=== PATIENT | female | born 1980 | race Caucasian/White ===

== ENCOUNTER → 2018-01-30 16:52 | Outpatient (CLI) | payer OTHER, SELFPAY ==
[2018-02-05 10:29] LABS: HPV APTIMA, High Risk Negative (Negative)
== END ==
PROVIDERS: Referring Provider Obstetrics & Gynecology; Visit Provider Obstetrics & Gynecology
DX: Z12.4 Encounter for screening for malignant neoplasm of cervix (principal)
CPT/HCPCS: 87624; 88175; G0145

== ENCOUNTER → 2019-05-08 08:25 | Outpatient (CLI) | payer OTHER, SELFPAY ==
[2018-12-25 16:43] VITALS: BMI 19.8
--- NOTE | 2019-05-08 08:25 | RAD_ITS ---
STUDY: X-RAY - PELVIS AND RIGHT HIP REASON FOR EXAM: Female, 38 years old. MUSCULAR PAIN SUPERIOR TO RIGHT ILIAC WING X6 MONTHS, NKI TECHNIQUE: 3 views of the pelvis and hip. COMPARISON: None. FINDINGS: There is a non-specific bowel gas pattern. Normal visualized soft tissue structures. Normal bilateral iliac wings, sacroiliac joints and visualized sacrum. Normal bilateral superior and inferior pubic rami. Normal pubic symphysis. Normal bilateral ischial tuberosities. Normal visualized femoral head. Normal acetabulum. Normal hip joint. RAD/HIP, UNI W/ Pelvis 2-3 Views IMPRESSION: Normal x-ray examination of the pelvis and hip. Electronically Signed: Alex Caraballo, at 14:25 EST , Service support ,
== END ==
PROVIDERS: Referring Provider Physician Assistant; Visit Provider Physician Assistant
DX: M25.551 Pain in right hip (principal)
CPT/HCPCS: 73502

== ENCOUNTER 2021-04-13 14:33 | Outpatient (CLI) | payer OTHER, SELFPAY ==
[2021-04-18 17:11] LABS: HPV APTIMA, High Risk Negative (Negative)
== END 2021-04-13 23:59 | disposition home or self-care (01) ==
LOC: LABSPEC 14:33
PROVIDERS: Visit Provider Obstetrics & Gynecology
DX: Z12.4 Encounter for screening for malignant neoplasm of cervix (principal)
CPT/HCPCS: 87624; 88175; G0145

== ENCOUNTER → 2022-04-25 | Outpatient (CLI) | payer OTHER, SELFPAY ==
[2022-04-27 20:29] LABS: HPV APTIMA, High Risk Negative (Negative)
== END | disposition home or self-care (01) ==
PROVIDERS: Referring Provider Obstetrics & Gynecology; Visit Provider Obstetrics & Gynecology
DX: Z12.4 Encounter for screening for malignant neoplasm of cervix (principal)
CPT/HCPCS: 87624; 88175; G0145

== ENCOUNTER → 2022-06-15 | Outpatient (CLI) | payer OTHER, SELFPAY ==
--- NOTE | 2022-06-15 11:58 | BI_ITS ---
MAMMOGRAPHY - BILATERAL SCREENING REASON FOR EXAM: Female, 42 years old. Routine annual screening examination. PERTINENT HISTORY: Non-contributory. TECHNIQUE: Digital bilateral breast margareth (3D mammographic acquisition) in the CC and MLO projections. 2-D mediolateral oblique (MLO) and craniocaudad (CC) views of both breasts were obtained. CAD: Full Field Digital Mammography with Computer Added Detection was performed. COMPARISON: None. Baseline examination. FINDINGS: Breast Composition: The breasts are extremely dense, which lowers the sensitivity of mammography. There are no dominant masses or suspicious calcifications. No other significant abnormalities are identified. BI/SCRN MAMM (CAD)W/MARGARETH BILAT IMPRESSION: Negative screening mammogram. Yearly followup mammogram recommended. (A) ASSESSMENT CATEGORY: BIRADS Category 1: Negative. A letter regarding these results will be sent to the patient by the facility within 30 days. Approximately 10% of breast cancers are not detected by mammography. A normal mammogram should not delay biopsy of a clinically suspicious abnormality. [id number] Electronically Signed: Alex Caraballo MD at 13:12 EST ,
== END | disposition home or self-care (01) ==
LOC: OPBI 11:57
PROVIDERS: PCP Family Medicine; Visit Provider Obstetrics & Gynecology
DX: Z12.31 Encounter for screening mammogram for malignant neoplasm of breast (principal)
CPT/HCPCS: 77063; 77067

== ENCOUNTER → 2023-04-26 | Outpatient (CLI) | payer OTHER, SELFPAY ==
--- OUTSIDE RECORDS SUMMARY | 2023-04-26 10:49 | XMS RPT_ITS | CCD ---
Author Name Unknown Address [address] [place] [address] Organization [facility] Care Team Providers Care Manager Body Name Role Phone Blayne Box Unavailable Unavailable Unavailable Blayne Box Primary Care Provider Blayne Box Primary Care Provider Blayne Box Primary Care Provider Airam Wynne MD Primary Care Provider Blayne Box MD Primary Care Provider [phone] Blayne Box MD Unavailable BLAYNE BOX Attending Unavailable BLAYNE BOX Primary Care Unavailable ARUN AIRAM Fadumo Primary Care Unavailable HEATHER WHITTEN Attending Unavailable BLAYNE BOX Primary Care Unavailable KAREN OVALLE Referring Unavailable KAREN OVALLE Attending Unavailable BLAYNE BOX Primary Care Unavailable AIRAM WYNNE Primary Care Unavailable LETI ALVAREZ Referring Unava ilable ARUN AIRAM Fadumo Primary Care Unavailable KAREN OVALLE Referring Unavailable ARUN AIRAM Fadumo Primary Care Unavailable Blayne Box MD Primary Care Provider ROMEL CHACON Referring Unavailable BLAYNE BOX Primary Care UnavailROMEL Sethi Admitting Unavailable BLAYNE BOX Primary Care Unavailab ROMEL De Paz Attending Unavailable SAMANTA PARKER Attending Unavailab le BLAYNE BOX Primary Care Unavailab le Allergies Allergy Classification Reported Allergen(s) Allergy Type Date of Onset Reaction(s) Facility (4 sources) Penicillins; Translations: [Penicillins] Allergy to drug (finding) 2 [facility] 3 Repository (2 sources) Sulfonamides (Antibiotic); Translations: [Sulfa Drugs] Allergy to drug (finding) [facility] Work Phone: (2 sources) Penicillins Drug Allergy 2 [facility] Work Phone: (20 sources) Sulfonamides (Antibiotic); Translations: [SULFA (SULFONAMIDE ANTIBIOTICS)] Drug Allergy 5 Rash, Unknown, [facility] (14 sources) Penicillins Drug Allergy 2 Hives, Unknown [facility] Work Phone: (3 sources) Penicillin G; Translations: [PENICILLIN G] Drug Allergy 4 [facility] Medications Current Medications Medication Drug Class(es) Dates Sig (Normalized) Sig (Original) 24 hr buPROPion hydrochloride 150 mg extended release oral tablet (3 sources) Aminoketone Start: 07-06-2021 End: 01-02-2023 take 1 tablet by mouth once daily buPROPion XL (Wellbutrin XL) 150 mg 24 hr tablet Take 1 tablet (150 mg) by mouth once daily. 0 07/06/2021 01/02/2023 Discontinued (Therapy completed) clonazePAM 0.5 mg oral tablet (18 sources) Benzodiazepine Start: 12-31-2022 End: 03-31-2023 take 1 tablet by mouth twice daily as needed for anxiety clonazePAM (KLONOPIN) 0.5 mg tablet Indications: Optic neuritis Take 1 tablet by mouth twice daily as needed for anxiety for up to 90 days. 60 tablet 2 12/31/2022 03/31/2023 Active Completed/Discontinued Medications Medication Drug Class(es) Dates Sig (Normalized) Sig (Original) busPIRone hydrochloride 5 mg oral tablet (4 sources) Start: 07-30-2022 take 1 tablet by mouth every eight hours as needed busPIRone (BUSPAR) 5 mg tablet Take 1 tablet by mouth three times daily as needed. 90 tablet 11 07/30/2022 Active Problems Active Problems Problem Classification Problem Date Documented Date Episodic/Chronic Anxiety disorders (8 sources) Anxiety; Translations: [Anxiety state, unspecified] Onset: 07-30-2022 Chronic Fracture of upper limb (3 sources) Closed fracture of proximal phalanx of ring finger; Translations: [Nondisplaced fracture of proximal phalanx of left ring finger, initial encounter for closed fracture] Onset: 04-19-2023 04-24-2023 Episodic Headache; including migraine (3 sources) Migraine; Translations: [Migraine, unspecified, without mention of intractable migraine without mention of status migrainosus] Onset: 01-02-2023 01-02-2023 Chronic Inflammation; infection of eye (except that caused by tuberculosis or sexually transmitteddisease) (18 sources) Optic neuritis; Translations: [Unspecified optic neuritis] Onset: 08-02-2011 08-02-2011 Chronic Joint disorders and dislocations; trauma-related (1 source) Dislocation of proximal interphalangeal joint of left ring finger, initial encounter; Translations: [Closed dislocation of interphalangeal (joint), hand] 04-24-2023 Episodic Multiple sclerosis (5 sources) Multiple sclerosis; Translations: [Multiple sclerosis] Onset: 07-30-2022 Chronic Nutritional deficiencies (1 source) Vitamin D deficiency, unspecified; Translations: [Hypovitaminosis D] Onset: 07-06-2022 Chronic Other aftercare (1 source) Other chcf (current) drug therapy; Translations: [On angiotensin receptor blockers (ARB)] Onset: 03-22-2023 Episodic Other aftercare (2 sources) Encounter for follow-up examination after completed treatment for conditions other than malignant neoplasm; Translations: [Encounter for follow-up examination after completed treatment for conditions other than malignant neoplasm] Onset: 04-23-2023 Episodic Other injuries and conditions due to external causes (2 sources) Other injury of unspecified body region, initial encounter; Translations: [Other injury of unspecified body region, initial encounter] Onset: 04-23-2023 Episodic Unclassified (2 sources) Injury Onset: 04-23-2023 Past or Other Problems Problem Classification Problem Date Documented Da te Episodic/Chronic Immunizations and screening for infectious disease (8 sources) Patient encounter status; Translations: [Other specified vaccination] Onset: 07-30-2022 Episodic Other screening for suspected conditions (not mental disorders or infectious disease) (3 sources) Cancer cervix screening status; Translations: [Encounter for screening for malignant neoplasm of cervix] Onset: 07-30-2022 Episodic Results Test Name Value Interpretation Reference Range Facil ity Vital Signs Date Time Vital Sign Value Performing Clinician Facility 04-23-2023 14:23-0500 Body height 165.1 cm Romel Garzagiovany [facility] Work Phone: [facility] 04-23-2023 14:23-0500 Body mass index (BMI) [Ratio] 19.14 kg/m2 Romel Garzagiovany [facility] Work Phone: [facility] 04-23-2023 14:23-0500 Body weight 52.16 kg Romel Garzagiovany [facility] Work Phone: [facility] 01-02-2023 10:00-0400 Body height 165.1 cm Blayne Box MD Work Phone: [facility] 01-02-2023 10:00-0400 Body mass index (BMI) [Ratio] 20.1 kg/m2 Blayne Box MD Work Phone: [facility] 01-02-2023 10:00-0400 Body weight 54.8 kg Blayne Box MD Work Phone: [facility] 01-02-2023 10:00-0400 Diastolic blood pressure 66 mm[Hg] Blayne Box MD Work Phone: [facility] 01-02-2023 10:00-0400 Heart rate 86 /min Blayne Box MD Work Phone: [facility] 01-02-2023 10:00-0400 SaO2% (BldA) [Mass fraction] 99 % Blayne Box MD Work Phone: [facility] 01-02-2023 10:00-0400 Systolic blood pressure 120 mm[Hg] Blayne Box MD Work Phone: [facility] 07-30-2022 13:00-0400 Body height 163.2 cm Heather Whitten MASTER TECHNICIAN.DENTAL LABORATORY MANAGER Work Phone: [facility] 07-30-2022 13:00-0400 Body weight 53.98 kg Heather Whitten MASTER TECHNICIAN.DENTAL LABORATORY MANAGER Work Phone: [facility] 07-30-2022 13:00-0400 Diastolic blood pressure 70 mm[Hg] Heather Whitten MASTER TECHNICIAN.DENTAL LABORATORY MANAGER Work Phone: [facility] 07-30-2022 13:00-0400 Heart rate 84 /min Heather Whitten MASTER TECHNICIAN.DENTAL LABORATORY MANAGER Work Phone: [facility] 07-30-2022 13:00-0400 Respiratory rate 16 /min Heather Whitten MASTER TECHNICIAN.DENTAL LABORATORY MANAGER Work Phone: [facility] 07-30-2022 13:00-0400 SaO2% (BldA) [Mass fraction] 98 % Heather Whitten MASTER TECHNICIAN.DENTAL LABORATORY MANAGER Work Phone: [facility] 07-30-2022 13:00-0400 Systolic blood pressure 108 mm[Hg] Heather Whitten MASTER TECHNICIAN.DENTAL LABORATORY MANAGER Work Phone: [facility] 01-26-2022 10:16-0400 Body height 165.1 cm Karen Juarezinley DO Work Phone: [facility] 01-26-2022 10:16-0400 Body weight 49.9 kg Karen Juarezinley DO Work Phone: [facility] 01-26-2022 10:16-0400 Diastolic blood pressure 63 mm[Hg] Karen Yamile DO Work Phone: [facility] 01-26-2022 10:16-0400 Heart rate 87 /min Karen Yamile DO Work Phone: [facility] 01-26-2022 10:16-0400 Systolic blood pressure 117 mm[Hg] Karen Yamile DO Work Phone: [facility] 07-06-2021 09:38-0400 Body height 165.1 cm Blayne Box Work Phone: [facility] Work Phone: 07-06-2021 09:38-0400 Body mass index (BMI) [Ratio] 21.02 kg/m2 Blayne Box Work Phone: [email or web address] [facility] Work Phone: 07-06-2021 09:38-0400 Body surface area Derived from formula 1.63 m2 Blayne Box Work Phone: [email or web address] [facility] Work Phone: 07-06-2021 09:38-0400 Body weight 57.29 kg Blayne Box Work Phone: [email or web address] Work Phone: 07-06-2021 09:38-0400 Diastolic blood pressure 68 mm[Hg] Blayne Box Work Phone: [employer] [facility] Work Phone: 07-06-2021 09:38-0400 Heart rate 91 /min Blayne Box Work Phone: [employer] [email or web address] Work Phone: 07-06-2021 09:38-0400 SaO2% (BldA) [Mass fraction] 97 % Blayne Box Work Phone: [employer] [facility] Work Phone: 07-06-2021 09:38-0400 Systolic blood pressure 106 mm[Hg] Blayne Box Work Phone: [employer] Work Phone: Encounters Encounter Date Encounter Type Care Provider Facility Start: 04-23-2023 End: 04-23-2023 ambulatory BLAYNE BOX [facility] Start: 04-23-2023 End: 04-23-2023 Office outpatient visit 15 minutes Romel Chacon CNP Work Phone: [facility] Procedures Date Procedure Procedure Detail Performing Clinician Start: 07-06-2022 Mammography Heather rodriguez MASTER TECHNICIAN.DENTAL LABORATORY MANAGER Work Phone: Start: 06-15-2022 Mammography Blayne Sánchez MD Work Phone: Start: 04-25-2022 Microscopic observat ion [Identifier] in Cervix by Cyto stain Blayne Box MD Work Phone: Start: 01-22-2022 Mri brain brain stem w/o w/contrast material Shital Bailey MD Work Phone: Start: 01-22-2022 BRAIN & CERVICAL SPI NE MRI DISCRETE DATA [facility] Provider Start: 08-28-2021 Adult depression scr eening assessment Shital Bailey MD Work Phone: Start: 12-20-2020 Adult depression scr eening assessment Shital Bailey MD Work Phone: Start: 12-15-2015 Microscopic observat ion [Identifier] in Cervix by Cyto stain Romel Garzacock [facility] Work Phone: Plan of Treatment Date Care Activity Detail Author Start: 2032 Zoster Vaccines (2 o f 2) Zoster Vaccines (2 of 2) [facility] Start: 05-07-2027 HPV TESTING HPV TESTING [facility] Start: 05-07-2027 PAP TESTING PAP TESTING [facility] Start: 04-25-2025 Screening for malignant neoplasm of cervix [facility] Start: 07-31-2023 HEPATITIS B (1 of 3 - 3-dose series) HEPATITIS B (1 of 3 - 3-dose series) [facility] Immunizations Immunization Date Immunization Notes Care Provider Rock heller 07-19-2022 Human Papillomavirus 9-valent vaccine Heather Whitten APRN.DENTAL LABORATORY MANAGER Work Phone: [facility] Work Phone: 02-28-2022 HPV, unspecified formulation Blayne Box MD Work Phone: [facility] Work Phone: 02-28-2022 Human Papillomavirus 9-valent vaccine Heather Whitten APRN.DENTAL LABORATORY MANAGER Work Phone: [facility] Work Phone: 02-21-2022 influenza, injectabl e, quadrivalent, preservative free Heather Whitten APRN.DENTAL LABORATORY MANAGER Work Phone: [facility] Work Phone: 02-21-2022 zoster vaccine recombinant Heather Whitten APRN.DENTAL LABORATORY MANAGER Work Phone: [facility] Work Phone: 02-21-2022 Shingrix, PF, 50 mcg /0.5 mL vaccine Blayne Box MD Work Phone: [facility] Work Phone: 02-21-2022 influenza virus vacc ine, unspecified formulation Blayne Box MD Work Phone: [facility] Work Phone: 02-19-2022 influenza virus vacc ine, unspecified formulation Heather Whitten APRN.DENTAL LABORATORY MANAGER Work Phone: [facility] Work Phone: 02-05-2022 Pfizer COVID-19 vacc ine, bivalent, age 12 years and older (30 mcg/0.3 mL) Blayne Box MD Work Phone: [facility] Work Phone: 02-05-2022 Pfizer COVID Bival,1 2y up,,PF, 30 mcg/0.3 mL suspension vaccine Blayne Box MD Work Phone: [facility] Work Phone: 01-06-2022 Human Papillomavirus 9-valent vaccine Heather Whitten APRN.DENTAL LABORATORY MANAGER Work Phone: [facility] Work Phone: 03-09-2021 Moderna COVID-19 Vac cine 100 MCG/0.5ML Intramuscular Suspension Blayne Box Work Phone: [facility] Work Phone: 07-01-2020 Moderna COVID-19 Vac cine 100 MCG/0.5ML Intramuscular Suspension Blayne Box Work Phone: [facility] Work Phone: 06-03-2020 Moderna COVID-19 Vac cine 100 MCG/0.5ML Intramuscular Suspension Blayne Box Work Phone: [facility] Work Phone: 02-29-2020 influenza, seasonal, injectable, preservative free Blayne Box Work Phone: [facility] Work Phone: 02-18-2019 HPV, unspecified formulation Heather Whitten MASTER TECHNICIANRoxyDENTAL LABORATORY MANAGER Work Phone: [facility] Work Phone: 01-25-2009 influenza virus vacc ine, whole virus Blayne Lecel Work Phone: [facility] Work Phone: 02-14-2007 influenza virus vacc ine, whole virus Blayne Lecel Work Phone: [facility] Work Phone: Payers Date Payer Category Payer Unknown 2020 Private Health Insurance [facility] CHOICE PLUS [id number] 2020-Present [phone] [address] [place] [address] O [id number] 2020 Private Health Insurance [id number] 2020 Private Health Insurance [id number] 1982 Unknown [id number] 1982 Unknown [id number] 1982 Unknown [id number] 1982 Unknown [id number] Social History Date Type Detail Facility Start: 01-02-2023 End: 01-16-2024 Non-smoker Non-smoker [facility] Start: 01-13-2015 End: 04-19-2023 Tobacco smoking status NHIS Never smoked tobacco [facility] Start: 01-13-2015 End: 04-19-2023 Tobacco use and exposure Smokeless tobacco non-user [facility] Start: 12-21-2020 End: 07-30-2022 Alcohol intake Current drinker of alcohol (finding) [facility] Start: 1980 Sex Assigned At Not on file [facility] Start: 01-16-2022 End: 01-02-2023 Exposure to SARS-CoV-2 (event) Not sure [facility] Start: 07-23-2022 History SDOH Alcohol Frequency 1 [facility] Start: 07-23-2022 History SDOH Alcohol Std Drinks 0 [facility] Start: 07-23-2022 History SDOH Social Connections Phone 5 [facility] Start: 07-23-2022 History SDOH Social Connections Get Together 4 [facility] Start: 07-23-2022 History SDOH Social Connections Membership 2 [facility] Start: 07-23-2022 History SDOH Social Connections Meetings 98 [facility] Start: 07-23-2022 History SDOH Social Connections Living 3 [facility] Start: 01-02-2023 Alcohol intake Lifetime non-drinker (finding) [facility] Work Phone: Start: 01-02-2023 End: 04-23-2023 Tobacco use panel [facility] Do you belong to any clubs or organizations such as islam groups, unions, fraternal or athletic groups, or school groups? No [facility] How often do you att end meetings of the clubs or organizations you belong to? Patient refused [facility] Are you now , , , , never or living with a partner? [facility] How often to you hav e a drink containing alcohol? Never [facility] How hard is it for y ou to pay for the very basics like food, housing, medical care, and heating Not very hard [facility] Do you feel stress - tense, restless, nervous, or anxious, or unable to sleep at night because your mind is troubled all the time - these days [OSQ] Rather much [facility] (I/We) worried wheth er (my/our) food would run out before (I/we) got money to buy more. Never true [facility] Start: 04-19-2023 Gender identity Identifies as female gender (finding) [facility] Start: 04-19-2023 Sexual orientation Heterosexual (finding) [facility] Clinical Notes 07-06-2021 to 04-24-2023 Romel Chacon, DECATIZER - 04/24/2023 8:05 AM ESTTelephone Encounter - Katherinedavid Cloud Sharla Rico - 02/18/2023 2:59 PM ESTTelephone Encounter - Sharla Corrigan - 01/14/2023 3:32 PM EDT Note Date & Type Note Facility 04-24-2023 History of Present illness Narrative Images from the original note were not included. [facility] [address] [facility] [address] [facility] [id number] Chief Complaint Patient presents with Left Hand - Injury Aaliyah Velazquez, 42 year old female, presents to the office today with left hand pain. She got her hand caught up in a dog leash about 4 days ago which resulted in a dislocation and fracture. She was placed in a splint and instructed to follow up with orthopedics. She has pain with movement of the finger. She is also having some numbness of that finger but is able to move it. She is taking otc pain medication as needed. The patient's past medical history, surgical history, social history, family history, medications and allergies were reviewed with the patient today and are available in the chart for further review. Allergies Allergen Reactions Penicillin G Hives Sulfa (Sulfonamide Antibiotics) Hives Current Outpatient Medications: clonazePAM (KLONOPIN) 0.5 MG tablet, Take 1 (one) tablet (0.5 mg total) by mouth 2 (two) times a day as needed FOR ANXIETY ., Disp: , Rfl: ergocalciferol, vitamin D2, (VITAMIN D2 ORAL), Take by mouth ., Disp: , Rfl: FLUoxetine (PROZAC) 20 MG capsule, Take 1 (one) capsule (20 mg total) by mouth daily ., Disp: , Rfl: Kesimpta Pen 20 mg/0.4 mL Pen, as directed Subcutaneous Once a month, Disp: , Rfl: Past Medical History: Diagnosis Date MS (multiple sclerosis) (HCC) No past surgical history on file. Social History Socioeconomic History Marital status: Tobacco Use Smoking status: Never Smokeless tobacco: Never Substance and Sexual Activity Drug use: Not Currently ROS: Review of Systems Constitutional: Negative for activity change and fatigue. HENT: Negative for congestion, hearing loss and trouble swallowing. Eyes: Negative for visual disturbance. Respiratory: Negative for chest tightness and shortness of breath. Cardiovascular: Negative for chest pain and palpitations. Gastrointestinal: Negative for abdominal pain, diarrhea, nausea and vomiting. Endocrine: Negative for polydipsia, polyphagia and polyuria. Genitourinary: Negative for decreased urine volume, difficulty urinating and hematuria. Musculoskeletal: Positive for arthralgias, joint swelling and myalgias. Skin: Negative for color change, rash and wound. Allergic/Immunologic: Negative for immunocompromised state. Neurological: Negative for dizziness, weakness, light-headedness and numbness. Hematological: Does not bruise/bleed easily. Psychiatric/Behavioral: Negative for confusion and sleep disturbance. The patient is not nervous/anxious. PE: Physical Exam Constitutional: Appearance: She is well-developed. HENT: Head: Normocephalic. Eyes: Pupils: Pupils are equal, round, and reactive to light. Cardiovascular: Rate and Rhythm: Normal rate and regular rhythm. Pulmonary: Effort: Pulmonary effort is normal. Breath sounds: Normal breath sounds. Abdominal: General: Bowel sounds are normal. Palpations: Abdomen is soft. Musculoskeletal: General: Swelling, tenderness and deformity present. Left hand: Swelling, deformity, tenderness and bony tenderness present. Decreased range of motion. Decreased sensation. Normal capillary refill. Normal pulse. Hands: Cervical back: Normal range of motion and neck supple. Comments: Ecchymosis noted to left hand Skin: General: Skin is warm and dry. Neurological: Mental Status: She is alert and oriented to person, place, and time. Imaging: L Hand: Fracture of the 4th proximal phalanx with with dislocation of the PIP joint. Assessment/Plan: After examination and reviewing of the patient x-ray images, we discussed treatment options. I explained that she would have to have manipulation of the finger for correct alignment. She will follow up Saturday with Dr. Cerda for this. I will see her back after for continued treatment. documented in this encounter [facility] 03-25-2023 Note HNO ID: [id number] Author: Agnieszka Silvestre Service: ? Author Type: ? Type: Progress Notes Filed: 03/25/2023 9:12 AM Note Text: Radiology Service Progress Note DATE OF SERVICE: March 25, 2023 TIME: 9:11 AM PATIENT IDENTITY VERIFICATION COMPLETED USING TWO (2) STANDARD IDENTIFIERS: Name and Date of confirmed by patient verbally. FALL SCREENING: Has the patient had 2 falls in the last year or 1 fall with injury or currently using an Ambulatory Assistive Device (Walker, Cane, Wheelchair, Crutches, etc.)? No PATIENT GENDER DATA: Female. status: : No status: NO. PATIENT RELEVANT IMPLANT DATA REVIEWED: Not Applicable ALLERGIES: Reviewed and unchanged CONTRAST ALLERGY: NO. EXAM: MRI - CONTRAST TYPE: GROUP II PERIPHERAL IV DATA: Ambulatory: A peripheral IV was started in the Left antecubital site with a Butterfly: 23 gauge. RADIOLOGY DEPARTMENT: MR; Exam(s) Completed: Head: Multiple Sclerosis SIGNATURE: Agnieszka Middleton PATIENT NAME: Aaliyah Velazquez DATE: March 25, 2023 TIME: 9:11 AM [facility] 02-18-2023 Miscellaneous Notes Summary: APPOINTMENT LVM RE SCHEDULING PEDRO LUIS Reynoso/ACE/YAMILE. ANY PSS CAN ASSIST. documented in this encounter [facility] 02-07-2023 Note HNO ID: [id number] Author: Idania Hutchins Service: ? Author Type: ? Type: Progress Notes Filed: 02/07/2023 3:28 PM Note Text: Requested by: Received fax from pharmacy Medication Requested: Kesimpta Insurance Name: [employer] Insurance [place] phone #:[phone] Status: APPROVED [id number]. KESIMPTA INJ 20/.4ML is approved through 02/08/2024. Your patient may now fill this prescription and it will be covered. [facility] 01-14-2023 Miscellaneous Notes Summary: APPOINTMENT PATIENT TO SCHEDULE FOLLOW OV WITH ACE/YAMILE. PATIENT SAID SHE WOULD CALL BACK TO SCHEDULE. ANY PSS CAN ASSIST. documented in this encounter [facility] 01-14-2023 Miscellaneous Notes PT due for OV, will route to scheduling. Chioma Bello PA-C Source : electronic from pharmacy requesting refill. Delivery : e-script Requested Prescriptions Pending Prescriptions Disp Refills KESIMPTA PEN 20 mg/0.4 mL injection [Pharmacy Med Name: KESIMPTA 20MG 0.4ML SOLUTION PEN-INJECTOR PEN] 0.4 mL Sig: INJECT 20MG SUBCUTANEOUSLY ONCE MONTHLY DX : Patient last seen 06/08/2022 Next Appointment : none Idania Hutchins documented in this encounter [facility] 01-02-2023 History of Present illness Narrative Subjective Patient ID: Aaliyah Cote is a 42 y.o. female who presents for evaluate depression medication. HPI patient with MS was recommended for evaluation for further pharmacotherapy for anxiety. 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 Appropriately tearful at times. No melancholy. No homicidal or suicidal ideation. No problems with concentration or thought rumination. She can take situations of the worst possible outcome and be anxious. Reviewed controlled environment, perfectionism, approval. She is doing cbt workbook Prev wb not tolerated, prev lexapro flattened affect. Request mirtaz, if not amanda proz Review of Systems Objective BP 120/66 Pulse 86 Ht 1.651 m (5' 5 ) Wt 54.8 kg (120 lb 12.8 oz) SpO2 99% BMI 20.10 kg/m Physical Exam Mood and affect are normal, she is articulate and has insight. Assessment/Plan Problem List Items Addressed This Visit ICD-10-CM Anxiety - Primary F41.9 Relevant Medications mirtazapine (Remeron) 15 mg tablet Other Relevant Orders Follow Up In Primary Care - Established documented in this encounter [facility] Work Phone: 08-13-2022 Note HNO ID: [id number] Author: RT Morris(R) Service: ? Author Type: Technologist Type: Progress Notes Filed: 08/13/2022 10:31 AM Note Text: Radiology Service Progress Note DATE OF SERVICE: August 13, 2022 TIME: 10:31 AM PATIENT IDENTITY VERIFICATION COMPLETED USING TWO (2) STANDARD IDENTIFIERS: Name and Date of confirmed by patient verbally. FALL SCREENING: Has the patient had 2 falls in the last year or 1 fall with injury or currently using an Ambulatory Assistive Device (Walker, Cane, Wheelchair, Crutches, etc.)? No PATIENT GENDER DATA: Female. status: : No status: NO. PATIENT RELEVANT IMPLANT DATA REVIEWED: Yes ALLERGIES: Reviewed and unchanged CONTRAST ALLERGY: NO. EXAM: MRI - CONTRAST TYPE: GROUP II PERIPHERAL IV DATA: Ambulatory: A peripheral IV was started in the Left antecubital site with a Angio cath: 22 gauge. RADIOLOGY DEPARTMENT: MR; Exam(s) Completed: Head: Multiple Sclerosis SIGNATURE: RT Morris(R) PATIENT NAME: Aaliyah Velazquez DATE: August 13, 2022 TIME: 10:31 AM [facility] 07-30-2022 Note HNO ID: [id number] Author: Heather Whitten APRN.DENTAL LABORATORY MANAGER Service: ? Author Type: Nurse Specialist Type: Progress Notes Filed: 07/30/2022 1:52 PM Note Text: SUBJECTIVE: HIV SCREENING Never done DTAP,TDAP,TD(1 - Tdap) Never done DEPRESSION ASSESSMENT Never done HPI Aaliyah Velazquez is a 42 year old female. PMH significant for ACTIVE PROBLEM LIST Optic Neuritis Presents today to establish care with Airam Wynne MD. Previous PCP: Blayne Box MD [id number] [facility] [id number] Outside records:care everywhere She is followed at [facility] by Karen Ovalle DO for relapsing remitting multiple sclerosis. Currently taking Kesimpta. Seen in June 2022. 3-month follow-up with routine labs and repeat MRI brain. She was continued on vitamin D. 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 She notes still with anxiety, would like to try BuSpar. Clonazepam per Dr. Ovalle. Counseling: no current. Nurtec per Dr. Tatum for migraine. Trigger premenstual/ menstrual ~2 weeks per month Notes managed with aleve Q12 hours Notes intermittent ear pain for about 2 years. No current Review of Systems Constitutional: Negative. Psychiatric/Behavioral: The patient is nervous/anxious. Objective BP 108/70 Pulse 84 Resp 16 Ht 163.2 cm (5' 4.25 ) Wt 54 kg (119 lb) LMP 01/03/2015 (Exact Date) SpO2 98% BMI 20.27 kg/m? Physical Exam Vitals and nursing note reviewed. Constitutional: Appearance: Normal appearance. HENT: Head: Normocephalic and atraumatic. Eyes: Conjunctiva/sclera: Conjunctivae normal. Neck: Thyroid: No thyromegaly. Vascular: Normal carotid pulses. No JVD. Cardiovascular: Rate and Rhythm: Normal rate and regular rhythm. Pulses: Carotid pulses are 2+ on the right side and 2+ on the left side. Radial pulses are 2+ on the right side and 2+ on the left side. Heart sounds: Normal heart sounds. Pulmonary: Effort: Pulmonary effort is normal. Breath sounds: Normal breath sounds. Abdominal: General: Bowel sounds are normal. Palpations: Abdomen is soft. Musculoskeletal: Right lower leg: No edema. Left lower leg: No edema. Skin: General: Skin is warm and dry. Neurological: General: No focal deficit present. Mental Status: She is alert and oriented to person, place, and time. ALLERGIES Allergen Reactions Penicillins Hives, Unknown Sulfa (Sulfonamide * Rash, Unknown Burning and itching rash Medication ofatumumab (KESIMPTA) 20 mg/0.4 mL injection Ofatumumab (Kesimpta Pen) 20 mg/0.4 mL pen injector Active 20 MG SC EVERY MONTH April 25, 2022 1:00am begin at Week 4 of therapy clonazePAM (KLONOPIN) 0.5 mg tablet Take 1 tablet by mouth twice daily as needed for anxiety for up to 90 days. Cholecalciferol, Vitamin D3, (VITAMIN D) 25 mcg (1,000 unit) cap Take 1 capsule by mouth once daily. rimegepant (NURTEC ODT) 75 mg disintegrating tablet Take 75 mg by mouth as needed. RIBOFLAVIN (VITAMIN B-2 ORAL) Take by mouth. KESIMPTA PEN 20 mg/0.4 mL injection (Patient not taking: Reported on 07/30/2022) SUMAtriptan (IMITREX) 100 mg tablet (Patient not taking: Reported on 01/26/2022) PAST MEDICAL HISTORY Diagnosis Date Anxiety state Chronic sinusitis Migraine Multiple sclerosis (HCC) Optic neuritis 2012 PAST SURGICAL HISTORY Procedure Laterality Date PAST SURGICAL HISTORY OF Bilateral 04/08/1999 bunionectomy Social History Tobacco Use Smoking status: Never Smokeless tobacco: Never Substance Use Topics Alcohol use: Yes Drug use: No FAMILY HISTORY Problem Relation Age of Onset other (type 1 diabetes [Other]) Maternal Grandmother other (polycythemia [Other]) Paternal Grandmother Multiple Sclerosis No Family History Stroke Maternal Grandmother other (migraine [Other]) Mother other (migraine [Other]) Sister Component Latest Ref Rng AND Units 07/06/2022 Protein, Total 6.3 - 8.0 g/dL 6.9 Albumin 3.9 - 4.9 g/dL 4.7 Calcium 8.5 - 10.2 mg/dL 9.3 Bilirubin, Total 0.2 - 1.3 mg/dL 0.4 Alkaline Phosphatase 34 - 123 U/L 33 (L) AST 13 - 35 U/L 12 (L) ALT 7 - 38 U/L 7 Glucose 74 - 99 mg/dL 90 BUN 7 - 21 mg/dL 15 Creatinine 0.58 - 0.96 mg/dL 0.61 Sodium 136 - 144 mmol/L 136 Potassium 3.7 - 5.1 mmol/L 3.9 Chloride 97 - 105 mmol/L 103 CO2 22 - 30 mmol/L 25 Anion Gap 9 - 18 mmol/L 8 (L) eGFR >=60 mL/min/1.73mA? 116 WBC 3.70 - 11.00 k/uL 6.79 RBC 3.90 - 5.20 m/uL 4.25 Hemoglobin 11.5 - 15.5 g/dL 13.4 Hematocrit 36.0 - 46.0 % 38.6 MCV 80.0 - 100.0 fL 90.8 MCH 26.0 - 34.0 pg 31.5 MCHC 30.5 - 36.0 g/dL 34.7 RDW-CV 11.5 - 15.0 % 12.5 Platelet Count 150 - 400 k/uL 315 MPV 9.0 - 12.7 fL 9.3 Absolute nRBC <0.01 k/uL <0.01 Vitamin D 25 Hydroxy 31.0 - 80.0 ng/mL 40.4 ASSESSMENT/PLAN: 1. Anxiety - ICD9: 300.00, ICD10: F41.9 (primary diagnosis) She notes initially feeli (more content not included)... [facility] 07-30-2022 Instructions Heather Whitten APRN.CNS - 07/30/2022 1:18 PM EDT Consider getting Tdap vaccine, check with your neurologist first. documented in this encounter [facility] 07-30-2022 History of Present illness Narrative SUBJECTIVE: HIV SCREENING Never done DTAP,TDAP,TD(1 - Tdap) Never done DEPRESSION ASSESSMENT Never done HPI Aaliyah Velazquez is a 42 year old female. PMH significant for ACTIVE PROBLEM LIST Optic Neuritis Presents today to establish care with Airam Wynne MD. Previous PCP: Blayne Box MD [address] [facility] [address] Outside records:care everywhere She is followed at [facility] by Karen Ovalle DO for relapsing remitting multiple sclerosis. Currently taking Kesimpta. Seen in June 2022. 3-month follow-up with routine labs and repeat MRI brain. She was continued on vitamin D. 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 She notes still with anxiety, would like to try BuSpar. Clonazepam per Dr. Ovalle. Counseling: no current. Nurtec per Dr. Tatum for migraine. Trigger premenstual/ menstrual ~2 weeks per month Notes managed with aleve Q12 hours Notes intermittent ear pain for about 2 years. No current Review of Systems Constitutional: Negative. Psychiatric/Behavioral: The patient is nervous/anxious. Objective BP 108/70 Pulse 84 Resp 16 Ht 163.2 cm (5' 4.25 ) Wt 54 kg (119 lb) LMP 01/03/2015 (Exact Date) SpO2 98% BMI 20.27 kg/m Physical Exam Vitals and nursing note reviewed. Constitutional: Appearance: Normal appearance. HENT: Head: Normocephalic and atraumatic. Eyes: Conjunctiva/sclera: Conjunctivae normal. Neck: Thyroid: No thyromegaly. Vascular: Normal carotid pulses. No JVD. Cardiovascular: Rate and Rhythm: Normal rate and regular rhythm. Pulses: Carotid pulses are 2+ on the right side and 2+ on the left side. Radial pulses are 2+ on the right side and 2+ on the left side. Heart sounds: Normal heart sounds. Pulmonary: Effort: Pulmonary effort is normal. Breath sounds: Normal breath sounds. Abdominal: General: Bowel sounds are normal. Palpations: Abdomen is soft. Musculoskeletal: Right lower leg: No edema. Left lower leg: No edema. Skin: General: Skin is warm and dry. Neurological: General: No focal deficit present. Mental Status: She is alert and oriented to person, place, and time. ALLERGIES Allergen Reactions Penicillins Hives, Unknown Sulfa (Sulfonamide * Rash, Unknown Burning and itching rash Medication ofatumumab (KESIMPTA) 20 mg/0.4 mL injection Ofatumumab (Kesimpta Pen) 20 mg/0.4 mL pen injector Active 20 MG SC EVERY MONTH April 25, 2022 1:00am begin at Week 4 of therapy clonazePAM (KLONOPIN) 0.5 mg tablet Take 1 tablet by mouth twice daily as needed for anxiety for up to 90 days. Cholecalciferol, Vitamin D3, (VITAMIN D) 25 mcg (1,000 unit) cap Take 1 capsule by mouth once daily. rimegepant (NURTEC ODT) 75 mg disintegrating tablet Take 75 mg by mouth as needed. RIBOFLAVIN (VITAMIN B-2 ORAL) Take by mouth. KESIMPTA PEN 20 mg/0.4 mL injection (Patient not taking: Reported on 07/30/2022) SUMAtriptan (IMITREX) 100 mg tablet (Patient not taking: Reported on 01/26/2022) PAST MEDICAL HISTORY Diagnosis Date Anxiety state Chronic sinusitis Migraine Multiple sclerosis (HCC) Optic neuritis 2012 PAST SURGICAL HISTORY Procedure Laterality Date PAST SURGICAL HISTORY OF Bilateral 04/08/1999 bunionectomy Social History Tobacco Use Smoking status: Never Smokeless tobacco: Never Substance Use Topics Alcohol use: Yes Drug use: No FAMILY HISTORY Problem Relation Age of Onset other (type 1 diabetes [Other]) Maternal Grandmother other (polycythemia [Other]) Paternal Grandmother Multiple Sclerosis No Family History Stroke Maternal Grandmother other (migraine [Other]) Mother other (migraine [Other]) Sister Component Latest Ref Rng & Units 07/06/2022 Protein, Total 6.3 - 8.0 g/dL 6.9 Albumin 3.9 - 4.9 g/dL 4.7 Calcium 8.5 - 10.2 mg/dL 9.3 Bilirubin, Total 0.2 - 1.3 mg/dL 0.4 Alkaline Phosphatase 34 - 123 U/L 33 (L) AST 13 - 35 U/L 12 (L) ALT 7 - 38 U/L 7 Glucose 74 - 99 mg/dL 90 BUN 7 - 21 mg/dL 15 Creatinine 0.58 - 0.96 mg/dL 0.61 Sodium 136 - 144 mmol/L 136 Potassium 3.7 - 5.1 mmol/L 3.9 Chloride 97 - 105 mmol/L 103 CO2 22 - 30 mmol/L 25 Anion Gap 9 - 18 mmol/L 8 (L) eGFR >=60 mL/min/1.73m 116 WBC 3.70 - 11.00 k/uL 6.79 RBC 3.90 - 5.20 m/uL 4.25 Hemoglobin 11.5 - 15.5 g/dL 13.4 Hematocrit 36.0 - 46.0 % 38.6 MCV 80.0 - 100.0 fL 90.8 MCH 26.0 - 34.0 pg 31.5 MCHC 30.5 - 36.0 g/dL 34.7 RDW-CV 11.5 - 15.0 % 12.5 Platelet Count 150 - 400 k/uL 315 MPV 9.0 - 12.7 fL 9.3 Absolute nRBC <0.01 k/uL <0.01 Vitamin D 25 Hydroxy 31.0 - 80.0 ng/mL 40.4 ASSESSMENT/PLAN: 1. Anxiety - ICD9: 300.00, ICD10: F41.9 (primary diagnosis) She notes initially feeling well with escitalopram but then it made her feel blah. Would like to try BuSpar. Defers counseling at this time. 2. Encounter for immunization - ICD9: V03.89, ICD10: Z23 Deferred for now, will check with neurologist first 3. Screening for HIV (human immunodeficiency virus) - ICD9: V73.89, ICD10: Z11.4 To complete with next lab work - HIV 1 2 COMBO(AG/AB),WITH REFLEX TO DIFFERENTIATION 4. Screening for cervical cancer - ICD9: V76.2, ICD10: Z12.4 5. Encounter for screening mammogram for breast cancer - ICD9: V76.12, ICD10: Z12.[address] Tatum [employer] REPAIR TECHNICIAN [facility] June 2022 - Encourage monthly BSE 6. Multiple sclerosis (HCC) - ICD9: 340, ICD10: G35 Followed at [facility], taking Kesimpta 6 - 12 mo follow up Airam Wynne MD - to establish Heather Whitten APRN.DENTAL LABORATORY MANAGER Medical Decision Making: Problems: Moderate: 2+ stable chronic illnesses Risk: Moderate: Drug management Medical Decision Making Level: 4 - Moderate documented in this encounter [facility] 07-09-2022 Miscellaneous Notes Called patient Identified by name and date of Reviewed recommendations Patient verbalized understanding and agrees with plan No further concerns We typically check IGG & IGM labs around 6 months on kesimpta. I put in labs including a CBC with diff that we can obtain in September, or with her next visit Chioma Bello PA-C Sarah Call Name of caller : Aaliyah Velazquez Relationship to patient: Self Return call phone number : [phone] Reason for call : Other : Brief description of concern : Patient is calling and would like to speak to someone about a lab order Immunoglobulins and has not been tested since 01/2022 and asking if this order can be placed because she feels this is important. Please call to discuss further. documented in this encounter [facility] 06-11-2022 Miscellaneous Notes Summary: appointment lvm for patient to call so we can get her scheduled for her mri and follow up in september documented in this encounter [facility] 06-08-2022 Note HNO ID: [id number] Author: Karen Ovalle, DO Service: ? Author Type: Physician Type: Progress Notes Filed: 06/09/2022 4:37 PM Note Text: [facility] FOR MULTIPLE SCLEROSIS FOLLOWUP/ESTABLISHED PATIENT VISIT PRINCIPAL NEUROLOGIC DIAGNOSIS: Multiple Sclerosis DISEASE SUMMARY Date of onset: 05/2011 Date of diagnosis of MS: 08/30/2021 Disease course at onset: Relapsing-Remitting Current disease course: Relapsing-Remitting Previous disease therapies: None Current disease therapy: None Most recent MRI brain: 01/22/2022 Most recent MRI cervical spine: 08/22/2021 CSF: Not tested JCV serology result and date: Not tested Serum: AQP4/MOG negative CHIEF COMPLAINT: Follow-up for monitoring off MS modifying therapy INTERVAL HISTORY: Usual treating team: No specialty comments available. She began Kesimpta in early March. Since then, she is not having any issues with it and thinks it is going well. She was feeling more anxious but she has stopped her Lexapro. She also been having some discomfort in her ear on and off over the past year. She was wondering if this may be related to the trace fluid in her mastoid cells seen on MRI brain. She does not experience any discomfort during the day. She also was inquiring about taking a once weekly vitamin D. She currently takes 1000IU daily. Her last vitamin D level was normal. She is also wanting to know the plan for next set of MRI's and labs SUBJECTIVE AND REVIEW OF SYSTEMS: Neuro-QoL Functions (higher=better functioning) Flowsheet [facility] Office Visit from 01/26/2022 in [facility] from 08/30/2021 in Neurology Office Visit from 12/21/2020 in Neurology Upper Extremity Domain T Score 57 57 57 Lower Extremity Domain T Score 62 62 57 Cognitive Function Domain T Score 57 57 43 Positive Affect Well Being T Score -- -- -- Ability To Participate In Social Roles T Score 63 63 46 Satisfaction With Social Roles T Score 53 50 44 Neuro-QoL Symptoms (higher=worse symptoms) Flowsheet [facility] Office Visit from 01/26/2022 in [facility] from 08/30/2021 in Neurology Office Visit from 12/21/2020 in Neurology Sleep Domain T Score 47 51 56 Fatigue Domain T Score 49 43 47 Anxiety Domain T Score 59 64 63 Depression Domain T Score 48 46 46 Stigma Domain T Score 49 41 42 Emotional Behavior Dyscontrol T Score -- -- -- *NeuroQoL is a multi-domain patient-reported quality of life questionnaire. PHQ-9 [facility] Office Visit from 01/26/2022 in [facility] from 08/30/2021 in Neurology PHQ-9 Score 3 4 *PHQ-9 is a questionnaire for depressive symptoms, with scores 0-4 indicating none, 5-9 mild, 10-14 moderate, 15-19 moderately severe, and 20-27 severe symptoms. PROMIS-10 [facility] from 02/13/2022 in [facility] Office Visit from 01/26/2022 in [facility] Global Physical Health T Score 61.9 57.7 Global Mental Health T Score 62.5 48.3 0-10 Standard Pain Scale 5 5 *PROMIS-10 is a patient-reported quality of life measure, typically reported as physical and mental domains. Here scores are expressed as percentiles, where the lowest possible score is one, the highest possible score is 99, and 50 is average. Refer to patient-entered data. PAST HISTORY was reviewed and updated: PAST MEDICAL HISTORY Diagnosis Date Anxiety state Chronic sinusitis Migraine Multiple sclerosis (HCC) Optic neuritis 2012 PAST SURGICAL HISTORY Procedure Laterality Date PAST SURGICAL HISTORY OF Bilateral 04/08/1999 bunionectomy MEDICATIONS and ALLERGIES were reviewed and updated. SOCIAL HISTORY was reviewed and updated: Social History Tobacco Use Smoking status: Never Smokeless tobacco: Never Living situation: Living at home without assistance Employment Status / Disability: Full-time OBJECTIVE: VITALS AND WELLNESS: LMP 01/03/2015 (Exact Date) MSPT Performance Tests 12/21/2020 11/26/2012 Processing Speed Total Number Correct 49 - Low-contrast letter acuity test-2.5 percent opacity 47 - Low-contrast letter acuity test-100 percent opacity 60 - Dominant hand Right hand Right hand MDT Left Hand Time 25.46 - MDT Right Hand Time 23.08 - Walking Speed Test (25 feet) 6.94 - EXAM: Virtual visit, patient alert and conversational in her home RESULTS: Monitoring labs: CBC + Diff Component Value Date WBC 5.66 01/27/2022 HB 13.6 01/27/2022 HCT 41.1 01/27/2022 PLT 325 01/27/2022 ABSLYMPH 1.36 01/27/2022 Vitamin D Component Value Date VITD25 47.6 08/16/2021 CMP Component Value Date AST 20 01/27/2022 GLUC 83 01/27/2022 BUN 11 01/27/2022 CREAT 0.66 01/27/2022 NA 139 01/27/2022 K 4.2 01/27/2022 CHLOR 104 01/27/2022 ALT 11 01/27/2022 No results found for: JCVIND, JCVABNo results found for: JCVAB, JCVIND Discrete MRI Results Component Value Date Brain Enhancing Lesions One 01/22/2022 ASSESSMENT/PLAN: 41 year old female with anxiety (more content not included)... [facility] 03-06-2022 History of Present illness Narrative Medication Requested: Kesimpta Insurance Name: [employer] phone #:[phone] Request Reference Number: [id number]. KESIMPTA INJ 20/.4ML is approved through 03/06/2023. Your patient may now fill this prescription and it will be covered. documented in this encounter [facility] 02-13-2022 History of Present illness Narrative Images from the original note were not included. [facility] MULTIPLE SCLEROSIS FOLLOWUP/ESTABLISHED PATIENT VISIT PRINCIPAL NEUROLOGIC DIAGNOSIS: Multiple Sclerosis DISEASE SUMMARY Date of onset: 05/2011 Date of diagnosis of MS: 08/30/2021 Disease course at onset: Relapsing-Remitting Current disease course: Relapsing-Remitting Previous disease therapies: None Current disease therapy: None Most recent MRI brain: 01/22/2022 Most recent MRI cervical spine: 08/22/2021 CSF: Not tested JCV serology result and date: Not tested Serum: AQP4/MOG negative CHIEF COMPLAINT: Follow-up for monitoring off MS modifying therapy INTERVAL HISTORY: Usual treating team: No specialty comments available. Overall stable main questions today are regarding her DMT choice. SUBJECTIVE & REVIEW OF SYSTEMS: Neuro-QoL Functions (higher=better functioning) Flowsheet Row Office Visit from 01/26/2022 in [facility] from 08/30/2021 in Neurology Office Visit from 12/21/2020 in Neurology Upper Extremity Domain T Score 57 57 57 Lower Extremity Domain T Score 62 62 57 Cognitive Function Domain T Score 57 57 43 Positive Affect Well Being T Score -- -- -- Ability To Participate In Social Roles T Score 63 63 46 Satisfaction With Social Roles T Score 53 50 44 Neuro-QoL Symptoms (higher=worse symptoms) Flowsheet Row Office Visit from 01/26/2022 in [facility] from 08/30/2021 in Neurology Office Visit from 12/21/2020 in Neurology Sleep Domain T Score 47 51 56 Fatigue Domain T Score 49 43 47 Anxiety Domain T Score 59 64 63 Depression Domain T Score 48 46 46 Stigma Domain T Score 49 41 42 Emotional Behavior Dyscontrol T Score -- -- -- *NeuroQoL is a multi-domain patient-reported quality of life questionnaire. PHQ-9 Flowsheet Row Office Visit from 01/26/2022 in [facility] from 08/30/2021 in Neurology PHQ-9 Score 3 4 *PHQ-9 is a questionnaire for depressive symptoms, with scores 0-4 indicating none, 5-9 mild, 10-14 moderate, 15-19 moderately severe, and 20-27 severe symptoms. PROMIS-10 Flowsheet Row Appointment from 02/13/2022 in [facility] Office Visit from 01/26/2022 in [facility] Global Physical Health T Score 61.9 57.7 Global Mental Health T Score 62.5 48.3 0-10 Standard Pain Scale 5 5 *PROMIS-10 is a patient-reported quality of life measure, typically reported as physical and mental domains. Here scores are expressed as percentiles, where the lowest possible score is one, the highest possible score is 99, and 50 is average. Refer to patient-entered data. PAST HISTORY was reviewed and updated: PAST MEDICAL HISTORY Diagnosis Date Anxiety state Chronic sinusitis Migraine Multiple sclerosis (HCC) Optic neuritis 2012 PAST SURGICAL HISTORY Procedure Laterality Date PAST SURGICAL HISTORY OF Bilateral 04/08/1999 bunionectomy MEDICATIONS and ALLERGIES were reviewed and updated. SOCIAL HISTORY was reviewed and updated: Social History Tobacco Use Smoking status: Never Smokeless tobacco: Never Living situation: Living at home without assistance Employment Status / Disability: Full-time OBJECTIVE: VITALS & WELLNESS: LMP 01/03/2015 (Exact Date) MSPT Performance Tests 12/21/2020 11/26/2012 Processing Speed Total Number Correct 49 - Low-contrast letter acuity test-2.5 percent opacity 47 - Low-contrast letter acuity test-100 percent opacity 60 - Dominant hand Right hand Right hand MDT Left Hand Time 25.46 - MDT Right Hand Time 23.08 - Walking Speed Test (25 feet) 6.94 - EXAM: Virtual visit, patient alert and conversational in her home RESULTS: Monitoring labs: CBC + Diff Component Value Date WBC 5.66 01/27/2022 HB 13.6 01/27/2022 HCT 41.1 01/27/2022 PLT 325 01/27/2022 ABSLYMPH 1.36 01/27/2022 Vitamin D Component Value Date VITD25 47.6 08/16/2021 CMP Component Value Date AST 20 01/27/2022 GLUC 83 01/27/2022 BUN 11 01/27/2022 CREAT 0.66 01/27/2022 NA 139 01/27/2022 K 4.2 01/27/2022 CHLOR 104 01/27/2022 ALT 11 01/27/2022 No results found for: JCVIND, JCVABNo results found for: JCVAB, JCVIND Discrete MRI Results Component Value Date Brain Enhancing Lesions One 01/22/2022 ASSESSMENT/PLAN: 41 year old female with anxiety and MS presenting for follow up. History notable for OS optic neuritis in 2011 followed by possible recurrence in 2020 and Lhermitte's phenomenon in 08/2021. MRI with involvement of brain and cervical spine with ongoing radiological disease activity. She has remained off treatment due to hesitation. She plans to start a DMT and we went over options again today. After discussion her preference would be start Kesimpta. -Plan to start Kesimpta, will initiate paperwork -Follow up 3 months I spent a total of 30 minutes on the date of the service which included preparing to see the patient, [id number] patient care, completing clinical documentation, obtaining and/or reviewing separately obtained history, counseling and educating the patient/family/caregiver, ordering medications, tests, or procedures, communicating with other HCPs (not separately reported), communicating results to the patient/family/caregiver, and care coordination (not separately reported). Karen Smith [place] Staff documented in this encounter [facility] 01-26-2022 Miscellaneous Notes Had an appt today with Dr Ovalle Sarah Call Name of caller : Aaliyah Velazquez Relationship to patient: Self Return call phone number : [phone] Reason for call : Orders : Other Functional Medicine. Are you using A [facility] Facility ? Yes. Patient calling and needs order placed for above and if you can call her when order has been put in system. ALSO, she is asking about she had her MRI done today and not scheduled to be seen until 02/14 and asking if she can be seen sooner, if you have anything to get the MRI results. Please call her about both. documented in this encounter [facility] 01-26-2022 Instructions Holland Arnett MD - 01/26/2022 11:54 AM EDT We would like to check some blood tests in preparation for starting a disease modifying therapy. We would also like to obtain testing of your eyes called OCT. We will ask our research team to contact you regarding our research trial DELIVER-MS. We would like to meet you again in about 2 weeks virtually to go over the next steps. In the meantime, please do not hesitate to contact us with any questions or concerns. documented in this encounter [facility] 01-26-2022 History of Present illness Narrative Images from the original note were not included. [facility] MULTIPLE SCLEROSIS FOLLOWUP/ESTABLISHED PATIENT VISIT PRINCIPAL NEUROLOGIC DIAGNOSIS: Multiple Sclerosis DISEASE SUMMARY Date of onset: 05/2011 Date of diagnosis of MS: 08/30/2021 Disease course at onset: Relapsing-Remitting Current disease course: Relapsing-Remitting Previous disease therapies: None Current disease therapy: None Most recent MRI brain: 01/22/2022 Most recent MRI cervical spine: 08/22/2021 CSF: Not tested JCV serology result and date: Not tested Serum: AQP4/MOG negative CHIEF COMPLAINT: Review diagnostic testing results and discuss implications INTERVAL HISTORY: The patient is accompanied by her and mother. The patient was last seen 08/30/2021, follows with Dr. Bailey. Briefly, in 2011 she woke up in the morning noticed blurred vision in the left eye (only top half) with mild pain. She saw neuroophthalmologist in [place] and MRI brain and orbits were normal (although retrospectively noted possible left optic nerve lesion and enhancement). She saw Dr. Kingston at the time and was scheduled to get yearly MRI. MRI cervical spine at the time was also unremarkable. She had spontaneous recovery without steroids after 6-8 months. She had another repeat MRI brain and orbits (11/19/2012) which showed left optic nerve enhancement and T2 lesion although she was asymptomatic at this time. She then had occasional tingling in the hands (lasting a couple of weeks at the time). In 12/2020 she had recurrence of left eye blurred vision but then resolved spontaneously after a few months (this time painless). Around the same time she may have noticed Lhermitte's phenomenon lasting two months. She was recommended to have MRI but did not have this done. In 08/2020 she had recurrence of Lhermitte's phenomenon again lasting a few months. In October 2021 she noticed numbness in bilateral lower extremities lasting a month. MRI brain and cervical spine at this time showed lesions compatible with MS (enhancing and non-enhancing intracranial and cervical spine lesions). More recently MRI brain in January showed again new intracranial lesions and one enhancing lesion. She has remained hesitant about starting medication. She has not had weakness or bowel or bladder dysfunction. Her memory and cognition have not been affected. Her sleep is not affected without significant fatigue. She has had long standing anxiety with menstrual effect for which she has seen a counselor (takes clonazepam and escitalopram). She denies any significant depression. She has not family history of MS. 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 She does not have any future plans for . SUBJECTIVE & REVIEW OF SYSTEMS: Neuro-QoL Functions (higher=better functioning) Flowsheet [facility] Office Visit from 01/26/2022 in [facility] from 08/30/2021 in Neurology Office Visit from 12/21/2020 in Neurology Upper Extremity Domain T Score 57 57 57 Lower Extremity Domain T Score 62 62 57 Cognitive Function Domain T Score 57 57 43 Positive Affect Well Being T Score -- -- -- Ability To Participate In Social Roles T Score 63 63 46 Satisfaction With Social Roles T Score 53 50 44 Neuro-QoL Symptoms (higher=worse symptoms) Flowsheet [facility] Office Visit from 01/26/2022 in [facility] from 08/30/2021 in Neurology Office Visit from 12/21/2020 in Neurology Sleep Domain T Score 47 51 56 Fatigue Domain T Score 49 43 47 Anxiety Domain T Score 59 64 63 Depression Domain T Score 48 46 46 Stigma Domain T Score 49 41 42 Emotional Behavior Dyscontrol T Score -- -- -- *NeuroQoL is a multi-domain patient-reported quality of life questionnaire. PHQ-9 Flowsheet [facility] Office Visit from 01/26/2022 in [facility] from 08/30/2021 in Neurology PHQ-9 Score 3 4 *PHQ-9 is a questionnaire for depressive symptoms, with scores 0-4 indicating none, 5-9 mild, 10-14 moderate, 15-19 moderately severe, and 20-27 severe symptoms. PROMIS-10 Flowsheet Row Office Visit from 01/26/2022 in [facility] from 08/30/2021 in Neurology Global Physical Health T Score 57.7 54.1 Global Mental Health T Score 48.3 53.3 0-10 Standard Pain Scale 5 4 *PROMIS-10 is a patient-reported quality of life measure, typically reported as physical and mental domains. Here scores are expressed as percentiles, where the lowest possible score is one, the highest possible score is 99, and 50 is average. As above. PAST HISTORY was reviewed and updated: PAST MEDICAL HISTORY Diagnosis Date Anxiety state Chronic sinusitis Migraine Multiple sclerosis (HCC) Optic neuritis 2012 PAST SURGICAL HISTORY Procedure Laterality Date PAST SURGICAL HISTORY OF Bilateral 04/08/1999 bunionectomy MEDICATIONS and ALLERGIES were reviewed and updated. SOCIAL HISTORY was reviewed and updated: Social History Tobacco Use Smoking status: Never Smokeless tobacco: Never Living situation: Living at home without assistance Employment Status / Disability: Full-time OBJECTIVE: VITALS & WELLNESS: BP 117/63 (BP Site: Left Arm, BP Position: Sitting, BP Cuff Size: Large Adult) Pulse 87 Ht 165.1 cm (5' 5 ) Wt 49.9 kg (110 lb) LMP 01/03/2015 (Exact Date) BMI 18.30 kg/m MSPT Performance Tests 12/21/2020 11/26/2012 Processing Speed Total Number Correct 49 - Low-contrast letter acuity test-2.5 percent opacity 47 - Low-contrast letter acuity test-100 percent opacity 60 - Dominant hand Right hand Right hand MDT Left Hand Time 25.46 - MDT Right Hand Time 23.08 - Walking Speed Test (25 feet) 6.94 - EXAM: General Appearance: well appearing, in no acute distress Mental status evaluation during the interview and examination showed normal level of consciousness, language, memory, praxis, and higher intellectual function Affect: Normal Visual acuity: OD 20/20 OS 20/20 Correction: Without Extraocular movements: full, without ROSLYN Facial sensation: Intact bilaterally Facial movements: Intact bilaterally Speech: Normal Muscle tone: Right arm spasticity: none Right leg spasticity: none Left arm spasticity: none Left leg spasticity: none Muscle strength (#/5): Right Left Upper Extremity: Deltoids 5 5 Biceps 5 5 Triceps 5 5 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 Coordination: Upper extremity dexterity and rapid movements: Normal bilaterally Finger-nose: no dysmetria; coordination intact Heel-burton: no dysmetria; coordination intact Sensory Perception: Intact to light touch, vibration, and proprioception Standing balance: Normal Standard gait: normal. Able to walk on toes and hills. Assistive device: independent Tandem walking: Normal RESULTS: Monitoring labs: CBC + Diff Component Value Date WBC 7.43 08/16/2021 HB 13.7 08/16/2021 HCT 42.4 08/16/2021 PLT 363 08/16/2021 ABSLYMPH 1.58 08/16/2021 Vitamin D Component Value Date VITD25 47.6 08/16/2021 CMP Component Value Date AST 21 08/16/2021 ALT 13 08/16/2021 No results found for: JCVIND, JCVABNo results found for: JCVAB, JCVIND Discrete MRI Results Component Value Date Brain Enhancing Lesions One 01/22/2022 ASSESSMENT/PLAN: 41 year old female with anxiety and MS presenting for follow up. History notable for OS optic neuritis in 2011 followed by possible recurrence in 2020 and Lhermitte's phenomenon in 08/2021. MRI with involvement of brain and cervical spine with ongoing radiological disease activity. She has remained off treatment due to hesitation. Discussed rational for treatment and recommendations to start DMT as early as possible given ongoing radiological disease activity. Patient and family would like some time to think further. Also will request research team to discuss DELIVER-MS. PLAN: - Pre-DMT labs today. - OCT evaluation today. - Patient to discuss DELIVER-MS and DMT with family. - Virtual follow up in about 2 weeks to discuss next steps. The patient was seen with Dr. Ovalle. Holland Arnett MD Neuroimmunology Fellow The chart was reviewed for possible participation in the following studies:DELIVER-MS (RRMS, 18-60, treatment naive, EHT vs escalation DMT [facility] STAFF PHYSICIAN NOTE OF PERSONAL INVOLVEMENT IN CARE I have reviewed the follow-up note obtained and documented by the neuroimmunology fellow and I personally participated in the dale components and have answered all the patient's questions. Aaliyah Velazquez presented today to establish care with Yamile/Ace eastman. She has had evidence of new MS disease activity on MRI, but has not yet started a DMT. Today we spent the majority of the visit discussing DMT options. She was interested in DELIVER-MS, but since her symptom onset was >5 years she is not a candidate after discussing with research team. She will consider her DMT options and we will plan to make a final choice at her next visit in a few weeks Karen Ovalle D.O. [facility] Staff documented in this encounter [facility] 01-22-2022 History of Present illness Narrative Radiology Service Progress Note DATE OF SERVICE: January 22, 2022 TIME: 9:32 AM PATIENT IDENTITY VERIFICATION COMPLETED USING TWO (2) STANDARD IDENTIFIERS: Name and Date of confirmed by patient verbally. FALL SCREENING: Has the patient had 2 falls in the last year or 1 fall with injury or currently using an Ambulatory Assistive Device (Walker, Cane, Wheelchair, Crutches, etc.)? No PATIENT GENDER DATA: Female. status: : No status: NO. PATIENT RELEVANT IMPLANT DATA REVIEWED: Yes ALLERGIES: Reviewed and unchanged CONTRAST ALLERGY: NO. EXAM: MRI - CONTRAST TYPE: GROUP II PERIPHERAL IV DATA: Ambulatory: A peripheral IV was started in the Right antecubital site with a Angio cath: 22 gauge. RADIOLOGY DEPARTMENT: MR; Exam(s) Completed: Head: Multiple Sclerosis SIGNATURE: RT Morris(R) PATIENT NAME: Aaliyah Velazquez DATE: January 22, 2022 TIME: 9:32 AM documented in this encounter [facility] 08-30-2021 History of Present illness Narrative Images from the original note were not included. [facility] FOR MULTIPLE SCLEROSIS VIRTUAL VISIT FOR PATIENT EVALUATION Referral source: Shital Hutchinson [address] [facility] [id number] Also followed by: Blayne Box MD [address] [place] [address] PRINCIPAL NEUROLOGIC DIAGNOSIS: Multiple Sclerosis DISEASE SUMMARY Date of onset: 2011 Date of diagnosis of MS: 08/30/2021 Disease course at onset: Relapsing-Remitting Current disease course: Relapsing-Remitting Previous disease therapies: None Current disease therapy: None Most recent MRI brain: 08/22/2021 - OSH Most recent MRI cervical spine: 08/22/2021 - OSH Most recent MRI orbit: 11/19/2012 1. Abnormal T2 signal and enhancement is seen within the midportion of the intraconal segment of the left optic nerve consistent with optic neuritis. CSF: Not tested JCV serology result and date: Not tested HISTORY OF ILLNESS: The patient requested a virtual visit for education about MS diagnosis or management. History is taken via the virtual visit platform. - 06/2021 - she developed Lhermitte's sign (tingling which radiates down her back into her legs when looking down) - She actually developed this symptom once before in 2020, for a month-long period - Her vision has resolved 95% [address] the way since her last visit - Her only residual symptom is seeing sparkles in her upper left visual field (her left eye) - She is not having any symptoms related to movement (such as weakness, imbalance, etc.) - She has had a feeling in her right foot, like her toes are cold and numb - She is not sure whether this is due to MS/lesions or not - She is open to starting an MS DMT - However, she is concerned of the side effects of these DMT's - She wonders whether people stop taking the DMT's in their 50's and 60's - She is taking a Vitamin B12 supplement - She cut back on the amount of this that she was taking, however after recent high blood test - She is also taking a Vitamin D 5,000 IU supplement - 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, 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 Neuro-Qol Functions (higher = better functioning) 12/20/2020 Upper Extremity Domain T Score 57 12/20/2020 Lower Extremity Domain T Score 57 12/20/2020 Cognitive Function Domain T Score 43 12/20/2020 Ability To Participate In Social Roles T Score 46 12/20/2020 Satisfaction With Social Roles T Score 44 Neuro-Qol Symptoms (higher = worse symptoms) 12/20/2020 Sleep Domain T Score 56 12/20/2020 Fatigue Domain T Score 47 12/20/2020 Anxiety Domain T Score 63 12/20/2020 Depression Domain T Score 46 12/20/2020 Stigma Domain T Score 42 *NeuroQoL is a multi-domain patient-reported quality of life questionnaire. PHQ-9 Office Visit from 12/21/2020 in Neurology Appointment from 11/12/2012 in [facility] PHQ-9 Score 2 10 *PHQ-9 is a questionnaire for depressive symptoms, with scores 0-4 indicating none, 5-9 mild, 10-14 moderate, 15-19 moderately severe, and 20-27 severe symptoms. PROMIS-10 Office Visit from 12/21/2020 in Neurology Global Physical Health T Score 50.8 Global Mental Health T Score 48.3 0-10 Standard Pain Scale 3 *PROMIS-10 is a patient-reported quality of life measure, typically reported as physical and mental domains. Here scores are expressed as percentiles, where the lowest possible score is one, the highest possible score is 99, and 50 is average. PAST HISTORY: PAST MEDICAL HISTORY Diagnosis Date Anxiety state Chronic sinusitis Migraine Optic neuritis 2012 PAST SURGICAL HISTORY Procedure Laterality Date PAST SURGICAL HISTORY OF Bilateral 04/08/1999 bunionectomy Current Outpatient Medications Medication Sig SUMAtriptan (IMITREX) 100 mg tablet RIBOFLAVIN (VITAMIN B-2 ORAL) Take by mouth. clonazePAM 1 mg tablet Take 1 tablet by mouth as needed. No current facility-administered medications for this visit. ALLERGIES Allergen Reactions Penicillins Hives Sulfa (Sulfonamide * Rash Burning and itching rash FAMILY HISTORY Problem Relation Age of Onset other (type 1 diabetes [Other]) Maternal Grandmother other (polycythemia [Other]) Paternal Grandmother Multiple Sclerosis No Family History Stroke Maternal Grandmother other (migraine [Other]) Mother other (migraine [Other]) Sister REVIEW OF SYSTEMS: See HPI. Telehealth Neurologic Exam PHYSICAL EXAMINATION: Mental Status: Mental status evaluation during the interview and examination showed normal level of consciousness, orientation, language, memory, praxis, and higher intellectual function Affect: Normal Language: intact REVIEW OF OUTSIDE RECORDS: cc chart REVIEW OF IMAGING STUDIES: I personally reviewed the following images: - 08/22/2021 - MRI Brain and Orbits was reviewed with the patient - There is a ALF enhancing lesion in the right frontal lobe and ten flair images periventricular, 2 T1 lesions - 08/22/2021 - MRI Cervical Spine was reviewed with the patient - There are lesions are present at C2 on the left, C3 on the right, and also at the C5 level. None of these are ALF-enhancing and there are no ALF enhancing lesions present. - 11/19/2012 - MRI Orbit was reviewed with the patient - Abnormal T2 signal and enhancement is seen within the midportion of the intraconal segment of the left optic nerve consistent with optic neuritis. ASSESSMENT: Disease status: MS Patient is clinically improved visual symptoms, now with new onset Lhermittes and numbness of R toes. Patient is radiographically active with new alf enhancing brain lesion, multiple typical brain lesions and multiple cord lesions. She has definite MS. We reviewed the goals of the DMT. Patient is not currently on MS DMT, however, we plan to start Vumerity as MS DMT if the patient decides to start one. She will let us know her decision at her next visit, in four weeks. Ocrevus and Vumerity was discussed as options. She was concerned about PML, she would need LASHAY blood test. Symptomatic issues: Lhermitte's sign Visual disturbances - greatly improved since last visit; residual symptoms are in her left upper visual field (left eye) Cold feeling in right foot Psychosocial issues: Moods are stable Non-MS related issues: None PATIENT HEALTH EDUCATION: Risks and Common side effects of MS medications We reviewed healthy lifestyle for brain health and overall health. A great resource: [email or web address] ion.[email or web address] PLAN: Testing: JCV, MRI Brain w/wo contrast in six months Referrals: None Medications: Patient will consider starting Vumerity as MS DMT. Follow-up: In 4 weeks at [place] or [place] with MD/RN Letter to PCP Visit duration 40 minutes. Discussed disease status and plans with the patient. Instructions and rationale given. By signing my name below, I, Lashay Soriano, attest that this documentation has been prepared under the direction and in the presence of Dr. Bailey Electronically signed, Davion Berry August 28, 2021 2:37 PM I agree with the Chief Complaint, ROS, and Past Histories independently gathered by the clinical application support manager and the remaining scribed note accurately describes my personal service to the patient. Dr. Shital Bailey Staff Neurologist [facility] Sclerosis documented in this encounter [facility] 08-30-2021 Nurse Note Virtual visit documented in this encounter [facility] 08-18-2021 Miscellaneous Notes Per Diamante, patient requires VV to review results and plan of care with Dr Bailey. Virtual Visit with Dr Bailey placed on 09-12-21 at 8:30 am. Will contact patient on Saturday. 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 tried asynchonous prozac and whiting worse, tried clonazepam 1 tab once or twice a month, now anxiety constantly spills into other spheres. 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 Reviewed Becks therapy recommendation for Naresh Maldonado counseling. Discussed risk benefits alternatives to medication and discussed the use of SSRIs. She had a couple friends that have taken Wellbutrin successfully she is done reading and would prefer to attempt initial pharmacotherapy with Wellbutrin. I reviewed side effects contingencies. We will begin Wellbutrin 150 XL daily with recheck in interval -[facility] Work Phone: [facility] [place] [facility]* Diagnosis Multiple sclerosis (HCC) Multiple sclerosis [facility] [place] [facility]* Diagnosis Multiple sclerosis (HCC)- Primary Multiple sclerosis Optic neuritis Optic neuritis, unspecified [facility]* Diagnosis Optic neuritis Optic neuritis, unspecified [facility] [place] [facility]* Diagnosis Medication monitoring encounter- Primary Encounter for therapeutic drug monitoring [facility] [place] [facility]* Diagnosis Anxiety- Primary Anxiety state, unspecified Encounter for immunization Need for other specified prophylactic vaccination against single bacterial disease Screening for HIV (human immunodeficiency virus) Special screening examination for other specified viral diseases Screening for cervical cancer Screening for malignant neoplasm of the cervix Encounter for screening mammogram for breast cancer Multiple sclerosis (HCC) Multiple sclerosis [facility] [place] [facility]* Diagnosis Anxiety- Primary Anxiety state, unspecified documented in this encounter [facility] Work Phone: Evaluation note* Diagnosis Closed nondisplaced fracture of proximal phalanx of left ring finger, initial encounter- Primary Closed traumatic dislocation of proximal interphalangeal (PIP) joint of left ring finger documented in this encounter [facility] for referral (narrative)* Consultation (Routine) - Authorized Specialty Diagnoses / Procedures Referred By Latricia gutierrez Referred To Contact Primary Care Diagnoses Anxiety Procedures Follow Up In Primary Care - Established Blayne Box MD [address] [id number] Referral ID Status Reason Start Date Expiration Date V isits Requested Visits Authorized [id number] Authorized 01/02/2023 07/01/2023 1 1 [facility] Work Phone: Chief Complaint NPV--ANXIETY, AND UNDIAGNOSED DEPRESSION Family History No Family History Records FoundUnknown Family Member Name Dates Details Family history of diabetes m ellitus: Maternal Grandmother(V18.0, Z83.3) Status:Active Family history of glaucoma: Mother(V19.11, Z83.511) Status:Active Unknown Family Member Name Dates Details Family history of diabetes m ellitus: Maternal Grandmother(V18.0, Z83.3) Status:Active Family history of glaucoma: Mother(V19.11, Z83.511) Status:Active Summary Purpose Advance Directives No Advanced Directives Records FoundNo Advanced Directives Records FoundNo Advanced Directives Records FoundNo Advanced Directives Records FoundNo Advanced Directives Records Found Reason for Referral Specialty Diagnoses / Procedures Referred By Contac t Referred To Contact MR IMAGING Diagnoses Multiple sclerosis (HCC) Procedures MRI BRAIN WO/W IVCON MRI BRAIN BRAIN STEM W/O W/CONTRAST MATERIAL Shital Bailey MD [address] [place] [address] Mr Imaging Referral ID Status Reason Start Date Expiration Date Visits Requested Visits Authorized [id number] Pending Review Auto-Generat ed Referral 09/29/2022 1 1 Referral ID Status Reason Start Date Expiration Date V isits Requested Visits Authorized [id number] Closed Auto-Generate d Referral 03/02/2022 09/29/2022 1 1 Additional Source Comments INFORMATION SOURCE (unrecogn ized section and content) DATE CREATED AUTHOR AUTHOR'S ORGANIZ ATION 01/10/2023 [facility] DATE CREATED AUTHOR AUTHOR'S ORGANIZ ATION 03/26/2023 [facility] DATE CREATED AUTHOR AUTHOR'S ORGANIZ ATION 04/25/2023 [facility] DATE CREATED AUTHOR AUTHOR'S ORGANIZ ATION 04/26/2023 [facility] Comments (unrecognize d section and content) In the event this informatio n is protected by the Federal Confidentiality of Alcohol and Drug Abuse Patient Records regulations: The Federal rules restrict any use of the information to criminally investigate or prosecute any alcohol or drug abuse patient.[facility] the event this information is protected by the Federal Confidentiality of Alcohol and Drug Abuse Patient Records regulations: The Federal rules restrict any use of the information to criminally investigate or prosecute any alcohol or drug abuse patient.[facility] CampusIn the event this information is protected by the Federal Confidentiality of Alcohol and Drug Abuse Patient Records regulations: The Federal rules restrict any use of the information to criminally investigate or prosecute any alcohol or drug abuse patient.[facility]In the event this information is protected by the Federal Confidentiality of Alcohol and Drug Abuse Patient Records regulations: The Federal rules restrict any use of the information to criminally investigate or prosecute any alcohol or drug abuse patient.[facility]In the event this information is protected by the Federal Confidentiality of Alcohol and Drug Abuse Patient Records regulations: The Federal rules restrict any use of the information to criminally investigate or prosecute any alcohol or drug abuse patient.[facility] the event this information is protected by the Federal Confidentiality of Alcohol and Drug Abuse Patient Records regulations: The Federal rules restrict any use of the information to criminally investigate or prosecute any alcohol or drug abuse patient.[facility] CampusIn the event this information is protected by the Federal Confidentiality of Alcohol and Drug Abuse Patient Records regulations: The Federal rules restrict any use of the information to criminally investigate or prosecute any alcohol or drug abuse patient.[facility] CampusIn the event this information is protected by the Federal Confidentiality of Alcohol and Drug Abuse Patient Records regulations: The Federal rules restrict any use of the information to criminally investigate or prosecute any alcohol or drug abuse patient.[facility] CampusIn the event this information is protected by the Federal Confidentiality of Alcohol and Drug Abuse Patient Records regulations: The Federal rules restrict any use of the information to criminally investigate or prosecute any alcohol or drug abuse patient.[facility] CampusIn the event this information is protected by the Federal Confidentiality of Alcohol and Drug Abuse Patient Records regulations: The Federal rules restrict any use of the information to criminally investigate or prosecute any alcohol or drug abuse patient.[facility] CampusIn the event this information is protected by the Federal Confidentiality of Alcohol and Drug Abuse Patient Records regulations: The Federal rules restrict any use of the information to criminally investigate or prosecute any alcohol or drug abuse patient.[facility] CampusIn the event this information is protected by the Federal Confidentiality of Alcohol and Drug Abuse Patient Records regulations: The Federal rules restrict any use of the information to criminally investigate or prosecute any alcohol or drug abuse patient.[facility] CampusIn the event this information is protected by the Federal Confidentiality of Alcohol and Drug Abuse Patient Records regulations: The Federal rules restrict any use of the information to criminally investigate or prosecute any alcohol or drug abuse patient.[facility] CampusIn the event this information is protected by the Federal Confidentiality of Alcohol and Drug Abuse Patient Records regulations: The Federal rules restrict any use of the information to criminally investigate or prosecute any alcohol or drug abuse patient.[facility] CampusIn the event this information is protected by the Federal Confidentiality of Alcohol and Drug Abuse Patient Records regulations: The Federal rules restrict any use of the information to criminally investigate or prosecute any alcohol or drug abuse patient.[facility] Care Teams (unrecognized sec tion and content) Manager Body Relationship Specialty Start Date End Date Blayne Box PCP - General Family Practice 07/25/11 Manager Body Relationship Specialty Start Date End Date Blayne Box PCP - General Family Medicine 07/25/11 Manager Body Relationship Specialty Start Date End Date Blayne Box PCP - General Family Medicine 07/25/11 Manager Body Relationship Specialty Start Date End Date Blayne Box PCP - General Family Medicine 07/25/11 Manager Body Relationship Specialty Start Date End Date Blayne Box PCP - General Family Medicine 07/25/11 Manager Body Relationship Specialty Start Date End Date Blayne Box PCP - General Family Medicine 07/25/11 Manager Body Relationship Specialty Start Date End Date Blayne Box PCP - General Family Medicine 07/25/11 Manager Body Relationship Specialty Start Date End Date Blayne Box PCP - General Family Medicine 07/25/11 Manager Body Relationship Specialty Start Date End Date Airam Wynne MD [address] [place] [address] PCP - General Internal Medicine 07/30/22 Manager Body Relationship Specialty Start Date End Date Blayne Box MD [address] [place] [address] PCP - General 07/06/21 Blayne Box MD [address] [place] [address] PCP - [facility] PCP 04/08/21 Manager Body Relationship Specialty Start Date End Date Airam Wynne MD [address] [place] [address] PCP - General Internal Medicine 07/30/22 Manager Body Relationship Specialty Start Date End Date Airam Wynne MD [address] [place] [address] PCP - General Internal Medicine 07/30/22 Manager Body Relationship Specialty Start Date End Date Blayne Box MD [address] [place], [place] [id number] PCP - General Family Medicine 04/19/23 Reason for Visit (unrecogniz ed section and content) Specialty Diagnoses / Procedures Referred By Latricia gutierrez Referred To Contact MR IMAGING Diagnoses Multiple sclerosis (HCC) Procedures MRI BRAIN WO/W IVCON MRI BRAIN BRAIN STEM W/O W/CONTRAST MATERIAL Shital Bailey MD [address] [place] [address] Mr Imaging Referral ID Status Reason Start Date Expiration Date V isits Requested Visits Authorized [id number] Closed Auto-Generate d Referral 03/02/2022 09/29/2022 1 1 Reason Comments Orders Functional Medicine Reason Comments New Patient Evaluation Reason Comments Established Patient Follow-Up Reason Comments Medication Preauthorization Kesim[facility] Reason Comments Appointment lvm for patient to c all so we can get her scheduled for her mri and follow up in september Reason Comments Patient Question Lab order question Reason Comments Establish Care Reason Comments evaluate depression medication Reason Comments Refill Request Reason Comments Appointment PATIENT TO SCHEDULE FOLLOW OV WITH ACE/YAMILE. PATIENT SAID SHE WOULD CALL BACK TO SCHEDULE. ANY PSS CAN ASSIST. Reason Comments Appointment LVM RE SCHEDULING AP PTY W/ACE/YAMILE. ANY PSS CAN ASSIST. Reason Comments Injury FOR RECORDS PERTAINING TO PATIENTS WHO ARE OR HAVE BEEN ENROLLED IN A CHEMICAL DEPENDENCY/SUBSTANCEABUSE PROGRAM, SOME INFORMATION MAY BE OMITTED. This clinical summary was aggregated from multiple sources. Caution should be exercised in using it in the provision of clinical care. This summary normalizes information from multiple sources, and as a consequence, information in this document may materially change the coding, format and clinical context of patient data. In addition, data may be omitted in some cases. CLINICAL DECISIONS SHOULD BE BASED ON THE PRIMARY CLINICAL RECORDS. [employer] provides no warranty or guarantee of the accuracy or completeness of information in this document.
[2023-04-30 15:08] LABS: HPV APTIMA, High Risk Negative (Negative)
== END | disposition home or self-care (01) ==
LOC: LABSPEC 10:32
PROVIDERS: Referring Provider Obstetrics & Gynecology; Visit Provider Obstetrics & Gynecology
DX: Z12.4 Encounter for screening for malignant neoplasm of cervix (principal)
CPT/HCPCS: 87624; 88175; G0145

== ENCOUNTER → 2023-05-02 | Outpatient (CLI) | payer OTHER, SELFPAY ==
--- NOTE | 2023-05-02 14:30 | US_ITS ---
STUDY: ULTRASOUND BREAST - RIGHT REASON FOR EXAM: Female, 42 years old. Retroareolar pain. TECHNIQUE: Axial and longitudinal images of the RIGHT breast were performed with a high resolution ultrasound transducer. # OF IMAGES: 39 COMPARISON: Comparison is made with prior mammogram done earlier in the day. FINDINGS: RIGHT Breast: The retroareolar region of the breast was examined with ultrasound. There is dense fibroglandular tissue. No sonographic abnormality is seen. IMPRESSION: No sonographic abnormality is seen. ASSESSMENT CATEGORY: BIRADS Category 1: Negative. A letter regarding these results will be sent to the patient by the facility within 30 days. Electronically Signed: Alex Caraballo MD at 10:49 EST , STUDY: ULTRASOUND BREAST - LEFT REASON FOR EXAM: Female, 42 years old. Pain in the left breast. TECHNIQUE: Axial and longitudinal images of the LEFT breast were performed with a high resolution ultrasound transducer. # OF IMAGES: 39 COMPARISON: Comparison is made with prior mammogram done earlier today. FINDINGS: LEFT Breast: In the retroareolar region of the left breast was examined with ultrasound. No sonographic abnormality is seen. There is dense fibroglandular tissue. US/Breast Limited Unilateral IMPRESSION: No sonographic abnormality is seen. ASSESSMENT CATEGORY: BIRADS Category 1: Negative. A letter regarding these results will be sent to the patient by the facility within 30 days. Electronically Signed: Alex Caraballo MD at 10:50 EST ,
--- NOTE | 2023-05-02 14:30 | BI_ITS ---
MAMMOGRAPHY - BILATERAL DIAGNOSTIC REASON FOR EXAM: Female, 42 years old. Occasional bilateral breast pain. PERTINENT HISTORY: Non-contributory. TECHNIQUE: Digital bilateral breast tera (3D mammographic acquisition) in the CC and MLO projections. 2-D mediolateral oblique (MLO) and craniocaudad (CC) views of both breasts were obtained. CAD: Full Field Digital Mammography with Computer Added Detection was performed. COMPARISON: Comparison is made with prior study dated June 15, 2022. FINDINGS: Breast Composition: The breasts are extremely dense, which lowers the sensitivity of mammography. There are no dominant masses or suspicious calcifications. No other significant abnormalities are identified. There has been no significant change since the prior study. BI/DIAG MAMM W/CAD, BILAT IMPRESSION: Stable bilateral diagnostic mammogram. With the patient''s history of bilateral breast pain, targeted correlation with ultrasound is recommended for further evaluation. ASSESSMENT CATEGORY: BIRADS Category 0: Incomplete. Need additional imaging evaluation. A letter regarding these results will be sent to the patient by the facility within 30 days. Approximately 10% of breast cancers are not detected by mammography. A normal mammogram should not delay biopsy of a clinically suspicious abnormality. Electronically Signed: Alex Caraballo MD at 15:34 EST ,
--- OUTSIDE RECORDS SUMMARY | 2023-05-02 15:00 | XMS RPT_ITS | CCD ---
Author Name Unknown Address [address] [place] [address] Organization [facility] Care Team Providers Care [place]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 Name Role Phone Blayne Box Unavailable [phone] Unavailable Unavailable Blayne Box Primary Care Provider Blayne Box Primary Care Provider Blayne Box Primary Care Provider Airam Wynne MD Primary Care Provider Blayne Box MD Primary Care Provider Blayne Box MD Unavailable BLAYNE BOX Attending Unavailable BLAYNE BOX Primary Care Unavailable AIRAM WYNNE Primary Care Unavailable HEATHER WHITTEN Attending Unavailable BLAYNE BOX Primary Care Unavailable KAREN OVALLE Referring Unavailable KAREN OVALLE Attending Unavailable BLAYNE BOX Primary Care Unavailable AIRAM WYNNE Primary Care Unavailable LETI ALVAREZ Referring Unava ilable AIRAM WYNNE Primary Care Unavailable KAREN OVALLE Referring Unavailable EITAN WYNNEA Fadumo Primary Care Unavailable Blayne Box MD Primary Care Provider SAMANTA PARKER Attending Unavailab BLAYNE Mares Primary Care Unavailab ROBBIN Cali Attending Unavailab le BLAYNE BOX Primary Care Unavailab ROMEL De Paz Admitting Unavailable ROMEL CHACON Referring Unavailable BLAYNE BOX Primary Care Unavailab ROMEL De Paz Attending Unavailable BLAYNE BOX Primary Care Unavailab le Allergies Allergy Classification Reported Allergen(s) Allergy Type Date of Onset Reaction(s) Facility (4 sources) Penicillins; Translations: [Penicillins] Allergy to drug (finding) 2 [facility] 3 Repository (2 sources) Sulfonamides (Antibiotic); Translations: [Sulfa Drugs] Allergy to drug (finding) [facility] Work Phone: (2 sources) Penicillins Drug Allergy 2 [facility] Work Phone: (20 sources) Sulfonamides (Antibiotic); Translations: [SULFA (SULFONAMIDE ANTIBIOTICS)] Drug Allergy 5 Rash, Unknown, Hives [facility] (14 sources) Penicillins Drug Allergy 2 Hives, Unknown [facility] Work Phone: (4 sources) Penicillin G; Translations: [PENICILLIN G] Drug Allergy 4 [facility] Medications Current Medications Medication Drug Class(es) Dates [...] (Therapy completed) clonazePAM 0.5 mg oral tablet (19 sources) Benzodiazepine Start: 12-31-2022 End: 03-31-2023 take [...] Onset: 07-30-2022 Chronic Fracture of upper limb (6 sources) Closed fracture of proximal phalanx of [...] 08-02-2011 Chronic Joint disorders and dislocations; trauma-related (4 sources) Dislocation of proximal interphalangeal joint of left ring finger, initial encounter; Translations: [Closed dislocation of interphalangeal (joint), hand] Onset: 04-26-2023 04-24-2023 Episodic Multiple sclerosis (5 sources) Multiple sclerosis; Translations: [Multiple sclerosis] Onset: 07-30-2022 Chronic Nutritional deficiencies (1 source) Vitamin D deficiency, unspecified; Translations: [Hypovitaminosis D] Onset: 07-06-2022 Chronic Other aftercare (1 source) Other jail (current) drug therapy; Translations: [On angiotensin receptor [...] 165.1 cm Romel Garzagiovany RIVERA Work Phone: [facility] 04-23-2023 14:23-0500 Body mass index (BMI) [Ratio] 19.14 kg/m2 Romel Garzagiovany RIVERA Work Phone: [facility] 04-23-2023 14:23-0500 Body weight 52.16 kg Romel Garzagiovany RIVERA Work Phone: [facility] 01-02-2023 10:00-0400 Body height 165.1 cm Blayne Box MD Work Phone: [facility] 01-02-2023 10:00-0400 Body mass index (BMI) [Ratio] 20.1 kg/m2 Blayne Box MD Work Phone: [facility] 01-02-2023 10:00-0400 Body weight 54.8 kg Blayne Box MD Work Phone: [facility] 01-02-2023 10:00-0400 Diastolic blood pressure 66 mm[Hg] Blayne Box MD Work Phone: [facility] 01-02-2023 10:00-0400 Heart rate 86 /min Blayne Box MD Work Phone: [facility] 01-02-2023 10:00-0400 SaO2% (BldA) [Mass fraction] 99 % Blayne Box MD Work Phone: [facility] 01-02-2023 10:00-0400 Systolic blood pressure 120 mm[Hg] Blayne Box MD Work Phone: [facility] 07-30-2022 13:00-0400 Body height 163.2 cm Heather Whittenmargaret [facility] Work Phone: [facility] 07-30-2022 13:00-0400 Body weight 53.98 kg Heather Whitten RACKING TECHNICIAN.DIRECTOR OF CONTRACTS Work Phone: [facility] 07-30-2022 13:00-0400 Diastolic blood pressure 70 mm[Hg] Heather Whitten RACKING TECHNICIAN.DIRECTOR OF CONTRACTS Work Phone: [facility] 07-30-2022 13:00-0400 Heart rate 84 /min Heather Whitten RACKING TECHNICIAN.DIRECTOR OF CONTRACTS Work Phone: [facility] 07-30-2022 13:00-0400 Respiratory rate 16 /min Heather Whitten RACKING TECHNICIAN.DIRECTOR OF CONTRACTS Work Phone: [facility] 07-30-2022 13:00-0400 SaO2% (BldA) [Mass fraction] 98 % Heather Whitten RACKING TECHNICIAN.DIRECTOR OF CONTRACTS Work Phone: [facility] 07-30-2022 13:00-0400 Systolic blood pressure 108 mm[Hg] Heather Whitten RACKING TECHNICIAN.DIRECTOR OF CONTRACTS Work Phone: [facility] 01-26-2022 10:16-0400 Body height 165.1 cm Karen Yamile DO Work Phone: [facility] 01-26-2022 10:16-0400 Body weight 49.9 kg Karen Yamile DO Work Phone: [facility] 01-26-2022 10:16-0400 Diastolic blood pressure 63 mm[Hg] Karen Yamile DO Work Phone: [facility] 01-26-2022 10:16-0400 Heart rate 87 /min Karen Yamile DO Work Phone: [facility] 01-26-2022 10:16-0400 Systolic blood pressure 117 mm[Hg] Karen Yamile DO Work Phone: [facility] 07-06-2021 09:38-0400 Body height 165.1 cm Blayne Box Work Phone: [facility] Work Phone: 07-06-2021 09:38-0400 Body mass index (BMI) [Ratio] 21.02 kg/m2 Blayne Box Work Phone: [facility] Work Phone: 07-06-2021 09:38-0400 Body surface area Derived from formula 1.63 m2 Blayne Box Work Phone: [facility] Work Phone: 07-06-2021 09:38-0400 Body weight 57.29 kg Blayne Box Work Phone: [employer] [facility] Work Phone: 07-06-2021 09:38-0400 Diastolic blood pressure 68 mm[Hg] Blayne Box Work Phone: [facility] Work Phone: 07-06-2021 09:38-0400 Heart rate 91 /min Blayne Box Work Phone: [facility] Work Phone: 07-06-2021 09:38-0400 SaO2% (BldA) [Mass fraction] 97 % Blayne Box Work Phone: [employer] [facility] Work Phone: 07-06-2021 09:38-0400 Systolic blood pressure 106 mm[Hg] Blayne Box Work Phone: [employer] [facility] Work Phone: Encounters Encounter Date Encounter Type Care Provider Facility Start: 04-26-2023 End: 04-26-2023 ambulatory ROBBIN CERDA [facility] Start: 04-26-2023 End: 04-26-2023 Office outpatient visit 10 minutes Robbin Cerda MD Work Phone: [facility] Procedures Date Procedure Procedure Detail Performing Clinician Start: 07-06-2022 Mammography Heather rodriguez RACKING TECHNICIAN.DIRECTOR OF CONTRACTS Work Phone: Start: 06-15-2022 Mammography Blayne Sánchez [...] [Identifier] in Cervix by Cyto stain Romel Chacon FISH BUTCHER Work Phone: Plan of Treatment Date Care Activity Detail Author Start: 2032 Zoster Vaccines (2 o f 2) Zoster Vaccines (2 of 2) [facility] Start: 05-07-2027 HPV TESTING HPV TESTING [facility] Start: 05-07-2027 PAP TESTING PAP TESTING [facility] Start: 04-25-2025 Screening for malignant neoplasm of cervix [facility] Start: 07-31-2023 HEPATITIS B (1 of 3 - 3-dose series) HEPATITIS B (1 of 3 - 3-dose series) [facility] Immunizations Immunization Date Immunization Notes Care Provider Rock heller 07-19-2022 Human Papillomavirus 9-valent vaccine Heather Whitten RACKING TECHNICIAN.DIRECTOR OF CONTRACTS Work Phone: [facility] Work Phone: 02-28-2022 HPV, unspecified formulation Blayne Box MD Work Phone: [facility] Work Phone: 02-28-2022 Human Papillomavirus 9-valent vaccine Heather Whitten RACKING TECHNICIAN.DIRECTOR OF CONTRACTS Work Phone: [facility] Work Phone: 02-21-2022 influenza, injectabl e, quadrivalent, preservative free Heatherjuice Whitten RACKING TECHNICIAN.DIRECTOR OF CONTRACTS Work Phone: [facility] Work Phone: 02-21-2022 zoster vaccine recombinant Heather Whitten RACKING TECHNICIAN.DIRECTOR OF CONTRACTS Work Phone: [facility] Work Phone: 02-21-2022 Shingrix, PF, 50 mcg /0.5 mL vaccine Blayne Box MD Work Phone: [facility] Work Phone: 02-21-2022 influenza virus vacc ine, unspecified formulation Blayne Box MD Work Phone: [facility] Work Phone: 02-19-2022 influenza virus vacc ine, unspecified formulation Heatherjuice Whitten RACKING TECHNICIAN.DIRECTOR OF CONTRACTS Work Phone: [facility] Work Phone: 02-05-2022 Pfizer COVID-19 vacc ine, bivalent, age 12 years and older (30 mcg/0.3 mL) Blayne Box MD Work Phone: [facility] Work Phone: 02-05-2022 Pfizer COVID Bival,1 2y up,,PF, 30 mcg/0.3 mL suspension vaccine Blayne Box MD Work Phone: [facility] Work Phone: 01-06-2022 Human Papillomavirus 9-valent vaccine Heatherjuice Whitten RACKING TECHNICIAN.DIRECTOR OF CONTRACTS Work Phone: [facility] Work Phone: 03-09-2021 Moderna COVID-19 Vac cine 100 MCG/0.5ML Intramuscular Suspension Blayne Box Work Phone: [facility] Work Phone: 07-01-2020 Moderna COVID-19 Vac cine 100 MCG/0.5ML Intramuscular Suspension Blayne Box Work Phone: [facility] Work Phone: 06-03-2020 Moderna COVID-19 Vac cine 100 MCG/0.5ML Intramuscular Suspension Blayne Box Work Phone: [facility] Work Phone: 02-29-2020 influenza, seasonal, injectable, preservative free Blayne Fadumo Lecel Work Phone: [facility] Work Phone: 02-18-2019 HPV, unspecified formulation Heather Whitten RACKING TECHNICIAN.DIRECTOR OF CONTRACTS Work Phone: [facility] Work Phone: 01-25-2009 influenza virus vacc ine, whole virus Blayne Fadumo Stencel Work Phone: [facility] Work Phone: 02-14-2007 influenza virus vacc ine, whole virus Blayne Fadumo Stencel Work Phone: [facility] Work Phone: Payers Date Payer Category Payer Unknown 2020 Private Health Insurance [facility] CHO[employer] PLUS [id number] 2020-Present [phone] [address] [place] [address] O [id number] 2020 Private Health Insurance [id number] 2020 Private Health Insurance [id number] 1982 Unknown [id number] 1982 Unknown [id number] 1982 Unknown [id number] 1982 Unknown [id number] 1982 Unknown [id number] Social History Date Type Detail Facility Start: 01-02-2023 End: 04-24-2023 Non-smoker Non-smoker [facility] Start: 01-13-2015 End: 04-19-2023 Tobacco smoking status NHIS Never smoked tobacco [facility] Start: 01-13-2015 End: 04-19-2023 Tobacco use and exposure Smokeless tobacco non-user [facility] Start: 12-21-2020 End: 07-30-2022 Alcohol intake Current drinker of alcohol (finding) [facility] Start: 1980 Sex Assigned At Not on file [facility] Start: 01-16-2022 End: 01-02-2023 Exposure to SARS-CoV-2 (event) Not sure [facility] Start: 07-23-2022 History SDOH Alcohol Frequency 1 [facility] Start: 07-23-2022 History SDOH Alcohol Std Drinks 0 [facility] Start: 07-23-2022 History SDOH Social Connections Phone 5 [facility] Start: 07-23-2022 History SDOH Social Connections Get Together 4 [facility] Start: 07-23-2022 History SDOH Social Connections Membership 2 [facility] Start: 07-23-2022 History SDOH Social Connections Meetings 98 [facility] Start: 07-23-2022 History SDOH Social Connections Living 3 [facility] Start: 01-02-2023 Alcohol intake Lifetime non-drinker (finding) [facility] Work Phone: Start: 01-02-2023 End: 04-24-2023 Tobacco use panel [facility] Do you belong to any clubs or organizations such as restorationist groups, unions, fraternal or athletic groups, or school groups? No [facility] How often do you att end meetings of the clubs or organizations you belong to? Patient refused [facility] Are you now , , , , never or living with a partner? [facility] How often to you hav e a drink containing alcohol? Never [facility] How hard is it for y ou to pay for the very basics like food, housing, medical care, and heating Not very hard [facility] Do you feel stress - tense, restless, nervous, or anxious, or unable to sleep at night because your mind is troubled all the time - these days [OSQ] Rather much [facility] (I/We) worried deisi er (my/our) food would run out before (I/we) got money to buy more. Never true [facility] Start: 04-19-2023 Gender identity Identifies as female gender (finding) [facility] Start: 04-19-2023 Sexual orientation Heterosexual (finding) [facility] Clinical Notes 07-06-2021 to 04-24-2023 Romel Chacon, FISH BUTCHER - 04/24/2023 8:05 AM ESTTelephone Encounter - Sharla Corrigan - 02/18/2023 2:59 PM ESTTelephone Encounter - Sharla Corrigan - 01/14/2023 3:32 PM EDT Note Date & Type Note Facility 04-24-2023 History of Present illness Narrative Images from the original note were not included. [facility] [address] [facility] [address] [facility] [id number] Chief Complaint Patient presents with Left Hand [...] Medical History: Diagnosis Date MS (multiple sclerosis) ([facility]) No past surgical history on file. Social [...] for continued treatment. documented in this encounter [facility] 03-25-2023 Note HNO ID: [id number] Author: Agnieszka Silvestre Service: ? Author Type: [...] DATE: March 25, 2023 TIME: 9:11 AM [facility] 02-18-2023 Miscellaneous Notes Summary: APPOINTMENT LVM RE SCHEDULING PEDRO LUIS Reynoso/GILL/YAMILE. ANY PSS CAN ASSIST. documented in this encounter [facility] 02-07-2023 Note HNO ID: [id number] Author: Idania Hutchins Service: ? Author Type: ? Type: Progress Notes Filed: 02/07/2023 3:28 PM Note Text: Requested by: Received fax from pharmacy Medication Requested: Kesimpta Insurance Name: [employer] [place] phone #:[phone] Status: APPROVED [id number]. KESIMPTA INJ 20/.4ML is approved through 02/08/2024. Your patient may now fill this prescription and it will be covered. [facility] 01-14-2023 Miscellaneous Notes Summary: APPOINTMENT PATIENT TO SCHEDULE FOLLOW OV WITH GILL/YAMILE. PATIENT SAID SHE WOULD CALL BACK TO SCHEDULE. ANY PSS CAN ASSIST. documented in this encounter [facility] 01-14-2023 Miscellaneous Notes PT due for OV, [...] none Idania Hutchins documented in this encounter [facility] 01-02-2023 History of Present illness Narrative Subjective Patient ID: Aaliyah Cote is a 42 y.o. female who presents for evaluate depression medication. HPI patient with MS was recommended for evaluation for further pharmacotherapy for anxiety. 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 Appropriately tearful at times. No melancholy. [...] Care - Established documented in this encounter [facility] Work Phone: 08-13-2022 Note HNO ID: [id number] Author: JUANPABLO Caceres) Service: ? Author Type: Technologist Type: Progress [...] DATE: August 13, 2022 TIME: 10:31 AM [facility] 07-30-2022 Note HNO ID: [id number] Author: Heather Whitten APRN.DIRECTOR OF CONTRACTS Service: ? Author Type: Nurse Specialist Type: Progress Notes Filed: 07/30/2022 1:52 PM Note Text: SUBJECTIVE: HIV SCREENING Never done DTAP,TDAP,TD(1 - Tdap) Never done DEPRESSION ASSESSMENT Never done HPI Aaliyah Velazquez is a 42 year old female. PMH significant for ACTIVE PROBLEM LIST Optic Neuritis Presents today to establish care with Airam Wynne MD. Previous PCP: Blayne Box MD [address] [facility] [id number] Outside records:care everywhere She is followed at [facility] by Karen Ovalle DO for relapsing remitting multiple sclerosis. Currently taking Kesimpta. Seen in June 2022. 3-month follow-up with routine labs and repeat MRI brain. She was continued on vitamin D. 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 [facility] 07-30-2022 Instructions Heather Whitten APRN.CNS - 07/30/2022 1:18 PM EDT Consider getting Tdap vaccine, check with your neurologist first. documented in this encounter [facility] 07-30-2022 History of Present illness Narrative SUBJECTIVE: HIV SCREENING Never done DTAP,TDAP,TD(1 - Tdap) Never done DEPRESSION ASSESSMENT Never done HPI Aaliyah Velazquez is a 42 year old female. PMH significant for ACTIVE PROBLEM LIST Optic Neuritis Presents today to establish care with Airam Wynne MD. Previous PCP: Blayne Box MD [address] [facility] [phone] Outside records:care everywhere She is followed at [facility] by Karen Ovalle DO for relapsing remitting multiple sclerosis. Currently taking Kesimpta. Seen in June 2022. 3-month follow-up with routine labs and repeat MRI brain. She was continued on vitamin D. 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 Tatum CONSTRUCTION PLANT OPERATOR [facility] June 2022 - Encourage monthly BSE 6. Multiple sclerosis (HCC) - ICD9: 340, ICD10: G35 Followed at [facility], taking Kesimpta 6 - 12 mo follow up Airam Wynne MD - to establish Heather Whitten APRN.DIRECTOR OF CONTRACTS Medical Decision Making: Problems: Moderate: 2+ stable chronic illnesses Risk: Moderate: Drug management Medical Decision Making Level: 4 - Moderate documented in this encounter [facility] 07-09-2022 Miscellaneous Notes Called patient Identified by [...] patient: Self Return call phone number : [phone] Reason for call : Other : Brief description of concern : Patient is calling and would like to speak to someone about a lab order Immunoglobulins and has not been tested since 01/2022 and asking if this order can be placed because she feels this is important. Please call to discuss further. documented in this encounter [facility] 06-11-2022 Miscellaneous Notes Summary: appointment lvm for patient to call so we can get her scheduled for her mri and follow up in september documented in this encounter [facility] 06-08-2022 Note HNO ID: [id number] Author: Karen Ovalle, DO Service: ? Author Type: Physician Type: Progress Notes Filed: 06/09/2022 4:37 PM Note Text: [facility]OSIS FOLLOWUP/ESTABLISHED PATIENT VISIT PRINCIPAL NEUROLOGIC [...] REVIEW OF SYSTEMS: Neuro-QoL Functions (higher=better functioning) [facility] Office Visit from 01/26/2022 in [facility] from 08/30/2021 in Neurology Office Visit [...] 53 50 44 Neuro-QoL Symptoms (higher=worse symptoms) [facility] Office Visit from 01/26/2022 in [facility] from 08/30/2021 in Neurology Office Visit [...] multi-domain patient-reported quality of life questionnaire. PHQ-9 [facility] Office Visit from 01/26/2022 in [facility] from 08/30/2021 in Neurology PHQ-9 Score 3 4 *PHQ-9 is a questionnaire for depressive symptoms, with scores 0-4 indicating none, 5-9 mild, 10-14 moderate, 15-19 moderately severe, and 20-27 severe symptoms. PROMIS-10 [facility] from 02/13/2022 in [facility] Office Visit from 01/26/2022 in [facility] Global Physical Health T Score 61.9 [...] female with anxiety (more content not included)... [facility] 03-06-2022 History of Present illness Narrative Medication Requested: [employer] Insurance Name: [employer] [place] phone #:[phone] Request Reference Number: [id number]. KESIMPTA INJ 20/.4ML is approved through 03/06/2023. Your patient may now fill this prescription and it will be covered. documented in this encounter [facility] 02-13-2022 History of Present illness Narrative Images from the original note were not included. [facility]OSIS FOLLOWUP/ESTABLISHED PATIENT VISIT PRINCIPAL NEUROLOGIC [...] Flowsheet Row Office Visit from 01/26/2022 in [facility] from 08/30/2021 in Neurology Office Visit [...] Flowsheet Row Office Visit from 01/26/2022 in [facility] from 08/30/2021 in Neurology Office Visit [...] Flowsheet Row Office Visit from 01/26/2022 in [facility] from 08/30/2021 in Neurology PHQ-9 Score 3 4 *PHQ-9 is a questionnaire for depressive symptoms, with scores 0-4 indicating none, 5-9 mild, 10-14 moderate, 15-19 moderately severe, and 20-27 severe symptoms. PROMIS-10 Flowsheet Row Appointment from 02/13/2022 in [facility] Office Visit from 01/26/2022 in [facility] Global Physical Health T Score 61.9 [...] which included preparing to see the patient, [id number] patient care, completing clinical documentation, obtaining and/or reviewing separately obtained history, counseling and educating the patient/family/caregiver, ordering medications, tests, or procedures, communicating with other HCPs (not separately reported), communicating results to the patient/family/caregiver, and care coordination (not separately reported). Karen Smith Maxwell Staff documented in this encounter [facility] 01-26-2022 Miscellaneous Notes Had an appt today with Dr Ovalle Sarah Call Name of caller : Aaliyah Velazquez Relationship to patient: Self Return call phone number : [phone] Reason for call : Orders : Other Functional Medicine. Are you using A [facility] Facility ? Yes. Patient calling and needs [...] her about both. documented in this encounter [facility] 01-26-2022 Instructions Holland Arnett MD - 01/26/2022 [...] questions or concerns. documented in this encounter [facility] 01-26-2022 History of Present illness Narrative Images from the original note were not included. [facility]OSIS FOLLOWUP/ESTABLISHED PATIENT VISIT PRINCIPAL NEUROLOGIC [...] with mild pain. She saw neuroophthalmologist in [place] and MRI brain and orbits were normal [...] history of MS. 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 She does not have any future plans for . SUBJECTIVE & REVIEW OF SYSTEMS: Neuro-QoL Functions (higher=better functioning) Flowsheet [facility] Office Visit from 01/26/2022 in [facility] from 08/30/2021 in Neurology Office Visit [...] 50 44 Neuro-QoL Symptoms (higher=worse symptoms) Flowsheet [facility] Office Visit from 01/26/2022 in [facility] from 08/30/2021 in Neurology Office Visit [...] patient-reported quality of life questionnaire. PHQ-9 Flowsheet [facility] Office Visit from 01/26/2022 in [facility] from 08/30/2021 in Neurology PHQ-9 Score 3 4 *PHQ-9 is a questionnaire for depressive symptoms, with scores 0-4 indicating none, 5-9 mild, 10-14 moderate, 15-19 moderately severe, and 20-27 severe symptoms. 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 Aaliyah Velazquez presented today to establish care with Trixie eastman. She has had evidence of new [...] in a few weeks Karen Ovalle D.O. [facility] Staff documented in this encounter [facility] 01-22-2022 History of Present illness Narrative Radiology [...] TIME: 9:32 AM documented in this encounter [facility] 08-30-2021 History of Present illness Narrative Images from the original note were not included. [facility] FOR MULTIPLE SCLEROSIS VIRTUAL VISIT FOR PATIENT EVALUATION Referral source: Shital Bailey [address] [facility] [id number] Also followed by: Blayne Box MD [address] [place] [address] PRINCIPAL NEUROLOGIC DIAGNOSIS: Multiple Sclerosis DISEASE SUMMARY [...] 12/21/2020 in Neurology Appointment from 11/12/2012 in [facility] PHQ-9 Score 2 10 *PHQ-9 is [...] MS DMT. Follow-up: In 4 weeks at [place] or [place] with MD/RN Letter to PCP Visit duration 40 minutes. Discussed disease status and plans with the patient. Instructions and rationale given. By signing my name below, I, Lashay Soriano, attest that this documentation has been prepared under the direction and in the presence of Dr. Bailey Electronically signed, Lashay SorianoDavion August 28, 2021 2:37 PM I agree with the Chief Complaint, ROS, and Past Histories independently gathered by the clinical systems support specialist and the remaining scribed note accurately describes my personal service to the patient. Dr. Shital Bailey Staff Neurologist [facility] for Multiple Sclerosis documented in this encounter [facility] 08-30-2021 Nurse Note Virtual visit documented in this encounter [facility] 08-18-2021 Miscellaneous Notes Per Diamante, patient requires VV to review results and plan of care with Dr Bailey. Virtual Visit with Dr Bailey placed on 09-12-21 at 8:30 am. Will contact patient on Saturday. 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 tried asynchonous prozac and whiting worse, tried clonazepam 1 tab once or twice a month, now anxiety constantly spills into other spheres. 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 Reviewed Becks therapy recommendation for Naresh friedman. Discussed risk benefits alternatives to medication and discussed the use of SSRIs. She had a couple friends that have taken Wellbutrin successfully she is done reading and would prefer to attempt initial pharmacotherapy with Wellbutrin. I reviewed side effects contingencies. We will begin Wellbutrin 150 XL daily with recheck in interval [facility] Work Phone: [facility] Diagnosis Multiple sclerosis (HCC) Multiple sclerosis [facility] Diagnosis Multiple sclerosis (HCC)- Primary Multiple sclerosis Optic neuritis Optic neuritis, unspecified [facility] Diagnosis Optic neuritis Optic neuritis, unspecified [facility] Diagnosis Medication monitoring encounter- Primary Encounter for therapeutic drug monitoring [facility]* Diagnosis Anxiety- Primary Anxiety state, unspecified Encounter for immunization Need for other specified prophylactic vaccination against single bacterial disease Screening for HIV (human immunodeficiency virus) Special screening examination for other specified viral diseases Screening for cervical cancer Screening for malignant neoplasm of the cervix Encounter for screening mammogram for breast cancer Multiple sclerosis (HCC) Multiple sclerosis [facility]* Diagnosis Anxiety- Primary Anxiety state, unspecified documented in this encounter [facility] Work Phone: Evaluation note* Diagnosis Closed nondisplaced fracture of proximal phalanx of left ring finger, initial encounter- Primary Closed traumatic dislocation of proximal interphalangeal (PIP) joint of left ring finger [facility] Consultation (Routine) - Authorized Specialty Diagnoses / Procedures Referred By Latricia gutierrez Referred To Contact Primary Care Diagnoses Anxiety Procedures Follow Up In Primary Care - Established Blayne Box MD [address] [place] [address] Referral ID Status Reason Start Date Expiration Date V isits Requested Visits Authorized [id number] Authorized 01/02/2023 07/01/2023 1 1 [facility] Work Phone: Chief Complaint NPV--ANXIETY, AND UNDIAGNOSED DEPRESSION Family History Unknown Family Member Name Dates Details Family [...] STEM W/O W/CONTRAST MATERIAL Shital Bailey MD [address] [place] [address] Mr Imaging Referral ID Status Reason Start Date Expiration Date Visits Requested Visits Authorized [id number] Pending Review Auto-Generat ed Referral 09/29/2022 1 1 Referral ID Status Reason Start Date Expiration Date V isits Requested Visits Authorized [id number] Closed Auto-Generate d Referral 03/02/2022 09/29/2022 1 1 Additional Source Comments INFORMATION SOURCE (unrecogn ized section and content) DATE CREATED AUTHOR AUTHOR'S ORGANIZ ATION 01/10/2023 [facility] DATE CREATED AUTHOR AUTHOR'S ORGANIZ ATION 03/26/2023 [facility] DATE CREATED AUTHOR AUTHOR'S ORGANIZ ATION 04/26/2023 [facility] DATE CREATED AUTHOR AUTHOR'S ORGANIZ ATION 04/28/2023 [facility] Source Comments (unrecognize d section and content) In the event this informatio n is protected by the Federal Confidentiality of Alcohol and Drug Abuse Patient Records regulations: The Federal rules restrict any use of the information to criminally investigate or prosecute any alcohol or drug abuse patient.[facility] the event this information is protected by the Federal Confidentiality of Alcohol and Drug Abuse Patient Records regulations: The Federal rules restrict any use of the information to criminally investigate or prosecute any alcohol or drug abuse patient.[facility] the event this information is protected by the Federal Confidentiality of Alcohol and Drug Abuse Patient Records regulations: The Federal rules restrict any use of the information to criminally investigate or prosecute any alcohol or drug abuse patient.[facility] the event this information is protected by the Federal Confidentiality of Alcohol and Drug Abuse Patient Records regulations: The Federal rules restrict any use of the information to criminally investigate or prosecute any alcohol or drug abuse patient.[facility] the event this information is protected by the Federal Confidentiality of Alcohol and Drug Abuse Patient Records regulations: The Federal rules restrict any use of the information to criminally investigate or prosecute any alcohol or drug abuse patient.[facility] System[facility] the event this information is protected by the Federal Confidentiality of Alcohol and Drug Abuse Patient Records regulations: The Federal rules restrict any use of the information to criminally investigate or prosecute any alcohol or drug abuse patient.[facility] System[facility] the event this information is protected by the Federal Confidentiality of Alcohol and Drug Abuse Patient Records regulations: The Federal rules restrict any use of the information to criminally investigate or prosecute any alcohol or drug abuse patient.[facility] System[facility] the event this information is protected by the Federal Confidentiality of Alcohol and Drug Abuse Patient Records regulations: The Federal rules restrict any use of the information to criminally investigate or prosecute any alcohol or drug abuse patient.[facility] System[facility] the event this information is protected by the Federal Confidentiality of Alcohol and Drug Abuse Patient Records regulations: The Federal rules restrict any use of the information to criminally investigate or prosecute any alcohol or drug abuse patient.[facility] System[facility] the event this information is protected by the Federal Confidentiality of Alcohol and Drug Abuse Patient Records regulations: The Federal rules restrict any use of the information to criminally investigate or prosecute any alcohol or drug abuse patient.[facility] System[facility] the event this information is protected by the Federal Confidentiality of Alcohol and Drug Abuse Patient Records regulations: The Federal rules restrict any use of the information to criminally investigate or prosecute any alcohol or drug abuse patient.[facility] System[facility] the event this information is protected by the Federal Confidentiality of Alcohol and Drug Abuse Patient Records regulations: The Federal rules restrict any use of the information to criminally investigate or prosecute any alcohol or drug abuse patient.[facility] System[facility] the event this information is protected by the Federal Confidentiality of Alcohol and Drug Abuse Patient Records regulations: The Federal rules restrict any use of the information to criminally investigate or prosecute any alcohol or drug abuse patient.[facility] System[facility] the event this information is protected by the Federal Confidentiality of Alcohol and Drug Abuse Patient Records regulations: The Federal rules restrict any use of the information to criminally investigate or prosecute any alcohol or drug abuse patient.[facility] System[facility] the event this information is protected by the Federal Confidentiality of Alcohol and Drug Abuse Patient Records regulations: The Federal rules restrict any use of the information to criminally investigate or prosecute any alcohol or drug abuse patient.[facility] Care Teams (unrecognized sec tion and content) [employer]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 Relationship Specialty Start Date End Date Blayne Box PCP - General Family Practice 07/25/11 [employer]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 Relationship Specialty Start Date End Date Blayne Box PCP - General Family Medicine 07/25/11 [employer]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 Relationship Specialty Start Date End Date Blayne Box PCP - General Family Medicine 07/25/11 [employer]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 Relationship Specialty Start Date End Date Stencel, Blayne D PCP - General Family Medicine 07/25/11 [employer]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 Relationship Specialty Start Date End Date Blayne Box PCP - General Family Medicine 07/25/11 [employer]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 Relationship Specialty Start Date End Date Blayne Box PCP - General Family Medicine 07/25/11 [employer]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 Relationship Specialty Start Date End Date Blayne Box Fadumo PCP - General Family Medicine 07/25/11 [employer]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 Relationship Specialty Start Date End Date Blayne Box PCP - General Family Medicine 07/25/11 [employer]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 Relationship Specialty Start Date End Date Airam Wynne MD [address] [place], [place] [id number] PCP - General Internal Medicine 07/30/22 [employer]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 Relationship Specialty Start Date End Date Blayne Box MD [address] [place] [address] PCP - General 07/06/21 Blayne Box MD [address] [place] [address] PCP - [facility] PCP 04/08/21 [employer]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 Relationship Specialty Start Date End Date Airam Wynne MD [address] [place], [place] [id number] PCP - General Internal Medicine 07/30/22 [employer]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 Relationship Specialty Start Date End Date Airam Wynne MD [address] [place], [place] [id number] PCP - General Internal Medicine 07/30/22 [employer]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 Relationship Specialty Start Date End Date Blayne Box MD [address] [place] [address] PCP - General Family Medicine 04/19/23 Reason for Visit (unrecogniz ed section and content) Specialty Diagnoses / Procedures Referred By Contac t Referred To Contact MR IMAGING Diagnoses Multiple sclerosis (HCC) Procedures MRI BRAIN WO/W IVCON MRI BRAIN BRAIN STEM W/O W/CONTRAST MATERIAL Shital Bailey MD [address] [place] [address] Mr Imaging Referral ID Status Reason Start Date Expiration Date V isits Requested Visits Authorized [id number] Closed Auto-Generate d Referral 03/02/2022 09/29/2022 1 [...] Appointment PATIENT TO SCHEDULE FOLLOW OV WITH GILL/YAMILE. PATIENT SAID SHE WOULD CALL BACK TO SCHEDULE. ANY PSS CAN ASSIST. Reason Comments Appointment LVM RE SCHEDULING AP PTY W/GILL/YAMILE. ANY PSS CAN ASSIST. Reason Comments Injury Reason Comments Follow-up FOR RECORDS PERTAINING TO PATIENTS WHO ARE [...] BE BASED ON THE PRIMARY CLINICAL RECORDS. [employer] provides no warranty or guarantee of the accuracy or completeness of information in this document.
== END | disposition home or self-care (01) ==
PROVIDERS: PCP Family Medicine; Referring Provider Obstetrics & Gynecology; Visit Provider Obstetrics & Gynecology
DX: N64.4 Mastodynia (principal)
CPT/HCPCS: 76642; 77062; 77066; G0279

== ENCOUNTER → 2024-04-27 | Outpatient (CLI) | payer OTHER, SELFPAY ==
[2024-04-30 23:07] LABS: HPV APTIMA, High Risk Negative (Negative)
== END | disposition home or self-care (01) ==
PROVIDERS: PCP Family Medicine; Referring Provider Obstetrics & Gynecology; Visit Provider Obstetrics & Gynecology
DX: Z12.4 Encounter for screening for malignant neoplasm of cervix (principal)
CPT/HCPCS: 87624; 88175; G0145

== ENCOUNTER → 2024-08-03 | Outpatient (CLI) | payer OTHER, SELFPAY ==
--- NOTE | 2024-08-03 15:02 | BI_ITS ---
EXAM: SCRN MAMM (CAD)W/MARGARETH BILAT DATE: 08/03/2024 CLINICAL HISTORY: F, Age 44 y/o , SCREENING MAMMOGRAM BREAST CANCER RISK ASSESSMENT: Has not been calculated. TECHNIQUE: Bilateral screening digital breast tomosynthesis with 2D and 3D images. Computer aided detection. COMPARISON: Prior exam(s) dated 05/02/2023 and 06/15/2022. FINDINGS: TISSUE DENSITY: The breast tissue is extremely dense which lowers the sensitivity of mammography. Bilateral Breast Mammographic Findings: There is a cluster of amorphous and round microcalcifications in the superior outer, junction of the middle and posterior 3rd aspect of the right breast. The cluster covers an area measuring approximately 7 mm. Further workup is indicated. Benign-appearing round microcalcifications are seen elsewhere in the right breast. Benign round microcalcifications are seen in the left breast. There are no suspicious masses, suspicious cluster of microcalcifications, architectural distortion are secondary sign of malignancy identified in the left breast. BI/SCRN MAMM (CAD)W/MARGARETH BILAT IMPRESSION: OVERALL FINAL ASSESSMENT: BIRADS 0 Incomplete: Need additional imaging evaluati on and/or prior mammograms for comparison. RECOMMENDATION: Incomplete: Need additional imaging evaluation. The patient should return for an LM view of the right breast as well as spot compression magnification CC and spot-compression magnification LM views of the right breast microcalcifications. A letter with findings and recommendations will be mailed to the patient. Reading Location: [id number]
== END | disposition home or self-care (01) ==
LOC: OPBI 15:01
PROVIDERS: PCP Family Medicine; Referring Provider Obstetrics & Gynecology; Visit Provider Obstetrics & Gynecology
DX: Z12.31 Encounter for screening mammogram for malignant neoplasm of breast (principal)
CPT/HCPCS: 77063; 77067